=== PATIENT | female | born 1975 | race Caucasian/White ===

== ENCOUNTER 2017-06-26 08:12 | Emergency (ER) | payer BC ==
[~2017-06-26] VITALS: Ht 165.1 cm; Wt 122.5 kg
[~2017-06-26 08:12] MED LIST: AMIODARONE HCL200 MG PO; ASPIRIN EC81 MG PO; Apixaban PO; Aspirin PO; CELEXA40 MG; EXCEDRIN MIGRA1 EAC3 PO; FAMOTIDINE20 MG PO; LANOXIN250 MCG PO; LOPRESSOR25 MG PO; METOPROLOL TART25 MG PO; MOBIC15 MG; PEPCID20 MG PO; PRAVASTATIN SOD20 MG PO
[2017-06-26 09:21] LABS: BASOPHILS % 0.6 % (0.0-1.0); EOSINOPHILS % 0.4 % (0.0-6.0); HEMOGLOBIN 11.5 g/dL (12.0-16.0); LYMPHOCYTES # (AUTO) 2.2 (1.0-3.2); LYMPHOCYTES % 32.8 % (18.0-39.1); MEAN CORPUSCULAR HEMOGLOBIN 27.4 pg (28-32); MEAN CORPUSCULAR HGB CONC 31.9 g/dL (31-35); MEAN CORPUSCULAR VOLUME 85.9 fL (81-99); MONOCYTES # (AUTO) 0.6 (0.2-0.8); MONOCYTES % 8.5 % (4.4-11.3); NEUTROPHILS # (AUTO) 3.9 (2.1-6.9); NEUTROPHILS % 57.3 % (38.7-80.0); PLATELET COUNT 271 x10e3/uL (140-360); RED BLOOD COUNT 4.19 x10e6/uL (3.6-5.1); RED CELL DISTRIBUTION WIDTH 13.6 % (11.7-14.4)
[2017-06-26 09:28] LABS: BILIRUBIN,URINE NEGATIVE (NEGATIVE); KETONES,URINE NEGATIVE (NEGATIVE); LEUKOCYTE ESTERASE ,URINE NEGATIVE (NEGATIVE); NITRITE,URINE NEGATIVE (NEGATIVE); PROTEIN,URINE DIPSTICK NEGATIVE (NEGATIVE); URINE UROBILINOGEN 0.2 mg/dL (0.2 - 1)
[2017-06-26 09:32] LABS: ALANINE AMINOTRANSFERASE 30 IU/L (0-55); ALBUMIN 3.7 g/dL (3.5-5.0); ALBUMIN/GLOBULIN RATIO 1.1 (0.8-2.0); ALKALINE PHOSPHATASE 34 IU/L (40-150); BLOOD UREA NITROGEN 6 mg/dL (7-26); BUN/CREATININE RATIO 9 (6-25); CARBON DIOXIDE 22 mmol/L (22-29); CHLORIDE 105 mmol/L (98-107); CREATINE KINASE 35 IU/L (29-168); CREATININE, SERUM 0.67 mg/dL (0.57-1.11); EST GLOMERULAR FILTRATION RATE > 60 ML/MIN (60-); GLUCOSE 101 mg/dL (74-118); SODIUM 135 mmol/L (136-145)
[2017-06-26 09:52] LABS: THYROID STIMULATING HORMONE 0.488 uIU/mL (0.350-4.940)
[2017-06-26 10:15] LABS: CLARITY,URINE SL CLOUDY (CLEAR); COLOR,URINE YELLOW (YELLOW)
[2017-06-26 10:21] LABS: AMORPHOUS SEDIMENT,URINE RARE (FEW); BACTERIA,URINE RARE /HPF; EPITHELIAL CELLS,URINE MODERATE /LPF
[2017-06-26] MEDS ORDERED: KETOROLAC TROMETHAMINE 30 MG/ML VIAL IV ONE (10:30)
[2017-06-26 12:12] VITALS: BP 152/82
== END 2017-06-26 12:20 | disposition home or self-care (01) ==
LOC: ER 08:12
DX: M54.6 Pain in thoracic spine (principal); S23.3XXA Sprain of ligaments of thoracic spine, initial encounter; M54.5 Low back pain; S39.012A Strain of muscle, fascia and tendon of lower back, initial encounter; M62.830 Muscle spasm of back; R00.2 Palpitations; I48.91 Unspecified atrial fibrillation
CPT/HCPCS: 36415; 80053; 81001; 82550; 82553; 84443; 84484; 85025; 87086; 93005; 96374; 99284; J1885

== ENCOUNTER 2018-08-03 18:31 | Emergency (ER) | payer SELFPAY ==
[~2018-08-03] VITALS: Ht 165.1 cm; Wt 122.5 kg
--- OUTSIDE RECORDS SUMMARY | 2018-08-03 18:34 | XMS REPORT | Continuity of Care Document ---
Author Author [facility] Interface Address Unknown Phone Unavailable Problems Problem Status Onset Date Classification Date Reported Comments Source Acute upper respiratory infection 01/03/2017 Diagnosis 01/03/2017 [facility] Nausea, vomiting and diarrhea 01/03/2017 Diagnosis 01/03/2017 [facility] Atrial fibrillation 01/03/2017 Diagnosis 01/03/2017 [facility] Serous otitis media of right ear 09/30/2016 Diagnosis 09/30/2016 [facility] Influenza-like symptoms 09/30/2016 Diagnosis 09/30/2016 [facility] Frontal sinusitis 07/06/2016 Diagnosis 07/06/2016 [facility] Atrial fibrillation with rapid ventricular response Active 06/19/2015 Problem 06/26/2017 [facility] CVA Active Problem 06/26/2017 [facility] TIA Active Problem 06/26/2017 [facility] UTI Active Problem 06/26/2017 [facility] Vision changes Active Problem 06/26/2017 [facility] Medications Medication Details Route Status Patient Instructions Ordering Provider Order Date Source Aspirin (Aspirin Ec) 81 Mg Tablet.dr Daily Active Red 09/09/2016 [facility] Famotidine 20 Mg Tab Twice Daily Before Meals Active Red 09/09/2016 [facility] Pravastatin Sodium 20 Mg Tablet Bedtime Active [facility] 09/09/2016 [facility] Aspirin/Acetaminophen/Caffeine (Excedrin Migraine Caplet) 1 Each Tablet, 2 Tab Oral Every 6 Hours as needed for Pain Active 09/08/2016 [facility] Metoprolol Tartrate 25 Mg Tablet, 25 Mg Oral Twice A Day Active 09/08/2016 [facility] Amiodarone Hcl 200 Mg Tablet, 400 Mg Oral Three Times A Day Active Red 04/11/2016 [facility] Digoxin (Lanoxin) 250 Mcg Tablet, 0.25 Mg Oral Daily@19 Active [facility] 04/11/2016 [facility] Famotidine 20 Mg Tab, 20 Mg Oral Every 12 Hours Active [facility] 04/11/2016 [facility] Citalopram Hydrobromide (Celexa) 40 Mg Tablet, Active 04/06/2016 [facility] Meloxicam (Mobic) 15 Mg Tablet, Active 04/06/2016 [facility] Apixaban 2.5 Mg Tablet Twice A Day Active [facility] 06/22/2015 [facility] Metoprolol Tartrate (Lopressor) 25 Mg Tab Twice A Day Active [facility] 06/22/2015 [facility] Aspirin 325 Mg Tab, 81 Mg Oral Daily Active [facility] 06/22/2015 [facility] Famotidine (Pepcid) 20 Mg Tablet, 20 Mg Oral Twice Daily Before Meals Active [facility] 06/22/2015 [facility] benzonatate 200 MG Oral Capsule benzonatate 200 mg capsule Take 1 capsule 3 times a day by oral route. Active [facility] apixaban 5 MG Oral Tablet [Eliquis] Eliquis 5 mg tablet Active [facility] Metoprolol Tartrate 25 MG Oral Tablet metoprolol tartrate 25 mg tablet Active [facility] Ondansetron 8 MG Disintegrating Oral Tablet ondansetron [address] 1 tablet every 8 hours by translingual route as needed for 3 days. Active [facility] Prednisone 20 MG Oral Tablet prednisone 20 mg tablet Take 1 tablet every 12 hours by oral route as directed for 6 days. Active [facility] Amoxicillin 875 MG / Clavulanate 125 MG Oral Tablet [Augmentin] Augmentin 875 mg-125 mg tablet Take 1 tablet every 12 hours by oral route for 7 days. Active [facility] Brompheniramine Maleate 0.4 MG/ML / Dextromethorphan Hydrobromide 2 MG/ML / Pseudoephedrine Hydrochloride 6 MG/ML Oral Solution [Bromfed DM] Bromfed DM 2 mg-30 mg-10 mg/5 mL syrup Take 10 mL every 4 hours by oral route as needed. Active [facility] Eliquis Eliquis Active [facility] Fluticasone propionate 0.05 MG/ACTUAT Metered Dose Nasal [place] fluticasone 50 mcg/actuation nasal spray,suspension [place] 1 spray twice a day by intranasal route as needed. Active [facility] Medrol ([place]ron) 4 mg tablets in a dose pack Medrol ([place]ron) 4 mg tablets in a dose pack As Instructed Active [facility] Toprol metoprolol succinate Active [facility] Azithromycin 250 MG Oral Tablet Zithromax Z-[place]ron 250 mg tablet TAKE 2 TABLETS (500 MG) BY ORAL ROUTE ONCE DAILY FOR 1 DAY THEN 1 TABLET (250 MG) BY ORAL ROUTE ONCE DAILY FOR 4 DAYS Active [facility] Allergies, Adverse Reactions, Alerts Substance Category Reaction Severity Reaction type Status Date Reported Comments Source Diltiazem MIGRAINE HEADACHE Mild Propensity to adverse reactions Active 06/26/2017 [facility] Immunizations Immunization Date Given Site Status Last Updated Comments Source Results Order Name Results Value Reference Range Date Interpretation Comments Source Amorphous sediment detection in urine sediment by light microscopy Amorphous sediment detection in urine sediment by light microscopy RARE FEW 06/26/2017 [facility] Automated blood basophil count (count/volume) Automated blood basophil count (count/volume) 0.0 0.0 - 0.1 06/26/2017 [facility] Automated blood basophil count as percentage of total leukocytes Automated blood basophil count as percentage of total leukocytes 0.6 0.0 - 1.0 06/26/2017 [facility] Automated blood eosinophil count Automated blood eosinophil count 0.0 0.0 - 0.4 06/26/2017 [facility] Automated blood eosinophil count as percentage of total leukocytes Automated blood eosinophil count as percentage of total leukocytes 0.4 0.0 - 6.0 06/26/2017 [facility] Automated blood hematocrit (volume fraction) Automated blood hematocrit (volume fraction) 36.0 34.2 - 44.1 06/26/2017 [facility] Automated blood lymphocyte count as percentage ot total leukocytes Automated blood lymphocyte count as percentage ot total leukocytes 32.8 18.0 - 39.1 06/26/2017 [facility] Automated blood monocyte count as percentage of total leukocytes Automated blood monocyte count as percentage of total leukocytes 8.5 4.4 - 11.3 06/26/2017 [facility] Automated blood neutrophil count Automated blood neutrophil count 3.9 2.1 - 6.9 06/26/2017 [facility] Automated blood platelet count (count/volume) Automated blood platelet count (count/volume) 271 140 - 360 06/26/2017 [facility] Automated blood segmented neutrophil count as percentage of total leukocytes Automated blood segmented neutrophil count as percentage of total leukocytes 57.3 38.7 - 80.0 06/26/2017 [facility] Automated erythrocyte mean corpuscular hemoglobin (mass per erythrocyte) Automated erythrocyte mean corpuscular hemoglobin (mass per erythrocyte) 27.4 28 - 32 06/26/2017 [facility] Automated erythrocyte mean corpuscular hemoglobin concentration measurement (mass/volume) Automated erythrocyte mean corpuscular hemoglobin concentration measurement (mass/volume) 31.9 31 - 35 06/26/2017 [facility] Automated erythrocyte mean corpuscular volume Automated erythrocyte mean corpuscular volume 85.9 81 - 99 06/26/2017 [facility] Automated urine sediment leukocyte count by microscopy (number/high power field) Automated urine sediment leukocyte count by microscopy (number/high power field) NONE 0 - 5 06/26/2017 [facility] Bacteria detection in urine sediment by light microscopy Bacteria detection in urine sediment by light microscopy RARE NONE 06/26/2017 [facility] Blood erythrocytes automated count (number/volume) Blood erythrocytes automated count (number/volume) 4.19 3.6 - 5.1 06/26/2017 [facility] Blood hemoglobin measurement (moles/volume) Blood hemoglobin measurement (moles/volume) 11.5 12.0 - 16.0 06/26/2017 [facility] Blood leukocytes automated count (number/volume) Blood leukocytes automated count (number/volume) 6.83 4.8 - 10.8 06/26/2017 [facility] Blood lymphocytes count (number/volume) Blood lymphocytes count (number/volume) 2.2 1.0 - 3.2 06/26/2017 [facility] Blood monocytes automated count (number/volume) Blood monocytes automated count (number/volume) 0.6 0.2 - 0.8 06/26/2017 [facility] Epithelial cells detection in urine sediment by light microscopy Epithelial cells detection in urine sediment by light microscopy MODERATE NONE 06/26/2017 [facility] Erythrocytes detection in urine sediment by light microscopy Erythrocytes detection in urine sediment by light microscopy NONE 0 - 5 06/26/2017 [facility] Estimated glomerular filtration rate (GFR) determination Estimated glomerular filtration rate (GFR) determination null 60 06/26/2017 [facility] Glucose measurement Glucose measurement 101 74 - 118 06/26/2017 [facility] Plasma globulin measurement (mass/volume) Plasma globulin measurement (mass/volume) 3.5 2.3 - 3.5 06/26/2017 [facility] Serum or plasma alanine aminotransferase measurement (enzymatic activity/volume) Serum or plasma alanine aminotransferase measurement (enzymatic activity/volume) 30 0 - 55 06/26/2017 [facility] Serum or plasma albumin measurement (mass/volume) Serum or plasma albumin measurement (mass/volume) 3.7 3.5 - 5.0 06/26/2017 [facility] Serum or plasma albumin/globulin mass ratio Serum or plasma albumin/globulin mass ratio 1.1 0.8 - 2.0 06/26/2017 [facility] Serum or plasma alkaline phosphatase measurement (enzymatic activity/volume) Serum or plasma alkaline phosphatase measurement (enzymatic activity/volume) 34 40 - 150 06/26/2017 [facility] Serum or plasma anion gap Serum or plasma anion gap 12.0 8 - 16 06/26/2017 [facility] Serum or plasma calcium measurement (mass/volume) Serum or plasma calcium measurement (mass/volume) 9.0 8.4 - 10.2 06/26/2017 [facility] Serum or plasma carbon dioxide, total measurement (moles/volume) Serum or plasma carbon dioxide, total measurement (moles/volume) 22 22 - 29 06/26/2017 [facility] Serum or plasma chloride measurement (moles/volume) Serum or plasma chloride measurement (moles/volume) 105 98 - 107 06/26/2017 [facility] Serum or plasma creatine kinase MB measurement (mass/volume) Serum or plasma creatine kinase MB measurement (mass/volume) 0.30 0.00 - 5.00 06/26/2017 [facility] Serum or plasma creatine kinase measurement (enzymatic activity/volume) Serum or plasma creatine kinase measurement (enzymatic activity/volume) 35 29 - 168 06/26/2017 [facility] Serum or plasma creatinine measurement (mass/volume) Serum or plasma creatinine measurement (mass/volume) 0.67 0.57 - 1.11 06/26/2017 [facility] Serum or plasma potassium measurement (moles/volume) Serum or plasma potassium measurement (moles/volume) 4.0 3.5 - 5.1 06/26/2017 [facility] Serum or plasma protein measurement (mass/volume) Serum or plasma protein measurement (mass/volume) 7.2 6.5 - 8.1 06/26/2017 [facility] Serum or plasma sodium measurement (moles/volume) Serum or plasma sodium measurement (moles/volume) 135 136 - 145 06/26/2017 [facility] Serum or plasma thyrotropin measurement by detection limit <=0.005 miu/l (units/volume) Serum or plasma thyrotropin measurement by detection limit <=0.005 miu/l (units/volume) 0.488 0.350 - 4.940 06/26/2017 [facility] Serum or plasma total bilirubin measurement (mass/volume) Serum or plasma total bilirubin measurement (mass/volume) 0.4 0.2 - 1.2 06/26/2017 [facility] Serum or plasma troponin i.cardiac measurement by detection limit <=0.01 NG/ml (mass/volume) Serum or plasma troponin i.cardiac measurement by detection limit <=0.01 NG/ml (mass/volume) null 0 - 0.300 06/26/2017 [facility] Serum or plasma urea nitrogen measurement (mass/volume) Serum or plasma urea nitrogen measurement (mass/volume) 6 7 - 26 06/26/2017 [facility] Serum or plasma urea nitrogen/creatinine mass ratio Serum or plasma urea nitrogen/creatinine mass ratio 9 6 - 25 06/26/2017 [facility] Specific gravity of Urine by Test strip Specific gravity of Urine by Test strip 1.015 1.010 - 1.025 06/26/2017 [facility] Urine clarity Urine clarity SL CLOUDY CLEAR 06/26/2017 [facility] Urine color determination Urine color determination YELLOW YELLOW 06/26/2017 [facility] Urine erythrocytes detection Urine erythrocytes detection TRACE NEGATIVE 06/26/2017 [facility] Urine glucose detection Urine glucose detection NEGATIVE NEGATIVE 06/26/2017 [facility] Urine ketones detection by automated test strip Urine ketones detection by automated test strip NEGATIVE NEGATIVE 06/26/2017 [facility] Urine leukocyte esterase detection by dipstick Urine leukocyte esterase detection by dipstick NEGATIVE NEGATIVE 06/26/2017 [facility] Urine nitrite detection Urine nitrite detection NEGATIVE NEGATIVE 06/26/2017 [facility] Urine pH measurement by automated test strip Urine pH measurement by automated test strip 7 5 - 7 06/26/2017 [facility] Urine protein measurement by test strip (mass/volume) Urine protein measurement by test strip (mass/volume) NEGATIVE NEGATIVE 06/26/2017 [facility] Urine total bilirubin measurement (mass/volume) Urine total bilirubin measurement (mass/volume) NEGATIVE NEGATIVE 06/26/2017 [facility] Urine urobilinogen measurement by test strip (mass/volume) Urine urobilinogen measurement by test strip (mass/volume) 0.2 0.2 - 1 06/26/2017 [facility] Red Cell Distribution Width 13.6 11.7 - 14.4 06/26/2017 [facility] IM GRANULOCYTES % 0.4 0.0 - 1.0 06/26/2017 [facility] Absolute Immature Granulocyte (auto 0.03 0 - 0.1 06/26/2017 [facility] Aspartate Amino Transf (AST/SGOT) 22 5 - 34 06/26/2017 [facility] Influenza A negative 01/03/2017 [facility] Influenza B negative 01/03/2017 [facility] Influenza A negative 09/30/2016 [facility] Influenza B negative 09/30/2016 [facility] RESULT negative 09/30/2016 [facility] SWAB LOCATION Left and Right tonsillar pillars 09/30/2016 [facility] Serum or plasma cholesterol in HDL measurement (mass/volume) Serum or plasma cholesterol in HDL measurement (mass/volume) 50 40 - 60 09/09/2016 [facility] Serum or plasma cholesterol in LDL measurement by calculation (mass/volume) Serum or plasma cholesterol in LDL measurement by calculation (mass/volume) 129 60 - 130 09/09/2016 [facility] Serum or plasma cholesterol measurement (mass/volume) Serum or plasma cholesterol measurement (mass/volume) 199 0 - 199 09/09/2016 [facility] Serum or plasma magnesium measurement (mass/volume) Serum or plasma magnesium measurement (mass/volume) 2.4 1.3 - 2.1 09/09/2016 [facility] Serum or plasma total cholesterol/cholesterol in HDL mass ratio Serum or plasma total cholesterol/cholesterol in HDL mass ratio 4.0 3.0 - 3.6 09/09/2016 [facility] Serum or plasma triglyceride measurement (mass/volume) Serum or plasma triglyceride measurement (mass/volume) 98 0 - 149 09/09/2016 [facility] Hemoglobin A1c Percent 5.0 4.0 - 7.0 09/09/2016 [facility] Serum or plasma digoxin measurement (mass/volume) Serum or plasma digoxin measurement (mass/volume) null 0.8 - 2.0 09/08/2016 [facility] Barbiturates screen, urine Barbiturates screen, urine NEGATIVE NEGATIVE 09/08/2016 [facility] Urine amphetamines detection by screen method > 1000 ng/mL Urine amphetamines detection by screen method > 1000 ng/mL NEGATIVE NEGATIVE 09/08/2016 [facility] Urine benzodiazepines detection by screening method Urine benzodiazepines detection by screening method NEGATIVE NEGATIVE 09/08/2016 [facility] Urine cannabinoids detection by screening method Urine cannabinoids detection by screening method NEGATIVE NEGATIVE 09/08/2016 [facility] Urine opiates screening test Urine opiates screening test NEGATIVE NEGATIVE 09/08/2016 [facility] Urine Methamphetamines Screen NEGATIVE NEGATIVE 09/08/2016 [facility] Urine Cocaine Screen NEGATIVE NEGATIVE 09/08/2016 [facility] Vital Signs Vital Sign Value Date Comments Source Diastolic (mm Hg) 80 01/03/2017 [facility] Height 65 01/03/2017 [facility] Systolic (mm Hg) 124 01/03/2017 [facility] Weight 295 01/03/2017 [facility] Diastolic (mm Hg) 82 09/30/2016 [facility] Height 65 09/30/2016 [facility] Systolic (mm Hg) 120 09/30/2016 [facility] Weight 295 09/30/2016 [facility] Diastolic (mm Hg) 70 07/06/2016 [facility] Height 65 07/06/2016 [facility] Systolic (mm Hg) 128 07/06/2016 [facility] Weight 286 07/06/2016 [facility] Encounters Location Location Details Encounter Type Encounter Number Reason For Visit Attending Provider ADM Date DC Date Status Source [place] - [facility] - [id number] Valencia, EYE PHYSICIAN: [address] [place] [address], Ph. [phone] [id number] Kyung Valencia 07/06/2016 [facility] Discharged Inpatient (obs) [id number] MOLLY AVALOS MD 09/08/2016 09/09/2016 [facility] [place] - [facility] - [id number] Haji NP-C: [address] [place] [address], Ph. [phone] [id number] Pratibha Haji 09/30/2016 [facility] [place] [facility] - [id number] Camille Kohli, [facility]: [address] [facility], [place] [address], Ph. [id number] Camille Kohli 01/03/2017 [facility] Room [id number] BAUDILIO FAM MD 06/26/2017 06/26/2017 [facility] Procedures Procedure Code Date Perfomer Comments Source Computed tomography of brain without radiopaque contrast [id number] 09/08/2016 [facility] X-ray of chest, two views [id number] 09/08/2016 [facility] Tubal Ligation 05/15/1999 [facility]
--- OUTSIDE RECORDS SUMMARY | 2018-08-03 18:34 | XMS REPORT | Encounter Summary ---
Author Organization Unknown Address [address] [place] [address] Phone [phone] Reason for Visit Medical Complaint Instructions 1. Acute upper respiratory infection upper respiratory infection (cold): care instructions benzonatate 200 mg capsule prednisone 20 mg tablet rapid flu (A+B) 2. Nausea, vomiting and diarrhea ondansetron 8 mg disintegrating tablet 3. Atrial fibrillation atrial fibrillation: care instructions Discussion Note Pt is in NAD; Verbalizes understanding of all instructions with no questions at this time. Plan of Care Patient Instructions Stay hydrated, eat a liquid diet for the first four hours. Stay away from fried and spicy foods until symptoms resolve. If you do experience improvement in your symptoms within the next four hours, advance yourself to a carbohydrate-rich diet such as white rice, white bread, and crackers. Within the next four hours thereafter, you can advance to lean meats such as chicken, fish, and turkey. Four hours thereafter if symptoms do improve, then advance to a regular diet. Take over the counter imodium for diarrhea as needed. Take ondasentron for nausea and vomiting as directed. Start benzonatate for cough. 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 Take medications as prescribed and follow up with a PCP within 2-3 if symptoms worsen as discussed. In case of emergency call 911 or go to nearest ER. Reminders Provider Appointments None recorded. Lab Rapid Flu (A+B) 01/03/2017 [facility] Referral None recorded. Procedures None recorded. Surgeries None recorded. Imaging None recorded. Medications Name Start Date benzonatate 200 mg capsule Take 1 capsule 3 times a day by oral route. Eliquis 5 mg tablet metoprolol tartrate 25 mg tablet ondansetron [address] 1 tablet every 8 hours by translingual route as needed for 3 days. prednisone 20 mg tablet Take 1 tablet every 12 hours by oral route as directed for 6 days. Medications Administered None recorded. Vitals Height Weight BMI Blood Pressure 5 ft 5 in 295 lbs 49.1 kg/m2 124/80 mm[Hg] Lab Results Date Name Specimen Result Interpretation Description Value Range Status Address Rapid Flu (A+B) Influenza a negative [facility]: [facility] Influenza B negative [facility]: [facility] Allergies Code Code System Name Reaction Severity Status Onset NKDA Problems None recorded. Procedures Date Name Performed by 05/15/1999 Tubal Ligation Information not available Vaccine List None recorded. Social History None recorded. 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 History of Present Illness Ijufux-Mrbqrpbd-Olvkonsw / Abdominal Pain Reported By: Patient HPI: Quality: watery, intermittent. Severity: mild. Duration: symptoms last for how long?. Onset/Timing: no nocturnal symptoms, worse with meals, 1-3 times a day. Context: no one else with similar symptoms, no recent camping, no recent picnic, no possible food sources, no recent travel. Aggravating factors: eating. Associated Symptoms: no abdominal pain, no excess gas, no fever/chills, no rash, no joint pain, no weight loss, no nausea, no heartburn, no blood in stool, no mucus in stool, no black or tarry stools, no weakness, no nutrient deficiency, no headache, no feeling of fullness/mass in throat, no muscle aches, no bitter taste in the mouth, no difficulty swallowing (dysphagia), vomiting; watery diarrhea Ogjnmjl-Jnubr-Iow Reported By: Patient HPI: Duration: 3 days. Context: no ill contacts, no tick/insect bites, no recent travel, no new medications; Pt has h/o Afib, managed by cardiology. Associated Symptoms: no fever/chills, no headache, no muscle aches, no rash, no lethargy, cold symptoms, cough, nasal discharge; chest congestion, watery diarrhea and vomiting. Modifying Factors ; none Review of Systems:ROS as noted in the HPI Review of Systems Basic Reported By: Patient Physical Exam Adult Basic, Adult Female Complete Reported By: Patient Constitutional: General Appearance: healthy-appearing, well-nourished, well-developed. Level of Distress: NAD. Ambulation: ambulating normally Psychiatric: Mental Status: active and alert. Orientation: to time, to place, to person Eyes: Lids and Conjunctivae: non-injected, no discharge, no pallor Gwr-Lbyc-Bnsit-Throat: Ears: no lesions on external ear, no outer ear tenderness, EACs clear, TMs clear. Hearing: no hearing loss. Nose: no lesions on external nose, nares patent, no septal deviation, nasal passages clear, no sinus tenderness, post nasal drip. Lips, Teeth, and Gums: no mouth or lip ulcers, no bleeding gums, normal dentition. Oropharynx: moist mucous membranes, no erythema, no exudates, tonsils not enlarged Neck: Lymph Nodes: no cervical LAD Lungs: Respiratory effort: no dyspnea, no tachypnea, no use of accessory muscles, no intercostal retractions. Auscultation: breath sounds normal Cardiovascular: Heart Auscultation: RRR, no murmurs Neurologic: Gait and Station: normal gait, normal station Abdomen: Bowel Sounds: normal. Inspection and Palpation: soft, non-distended, no tenderness, no guarding, no rebound tenderness, no masses, no CVA tenderness. Liver: non-tender, no hepatomegaly. Spleen: non-tender, no splenomegaly. Hernia: none palpable
--- OUTSIDE RECORDS SUMMARY | 2018-08-03 18:34 | XMS REPORT | Encounter Summary ---
Author Organization Unknown Address [address] [place] [address] Phone [phone] Reason for Visit Medical Complaint Instructions 1. Frontal sinusitis Bromfed DM 2 mg-30 mg-10 mg/5 mL syrup fluticasone 50 mcg/actuation nasal spray,suspension Medrol ([place]) 4 mg tablets in a dose pack Zithromax Z-[place]ron 250 mg tablet sinusitis: care instructions Discussion Note Refused any rapid testing Plan of Care Patient Instructions Take medication as instructed. Follow up with your pcp or clinic for worsening sign and symptoms. Avoid environmental irritants (Pollen, cigarette, smoke). Good handwashing to prevent upper respiratory infections. Humidified air can improve mucus clearance. Irrigation of sinuses with normal saline nose drops or sprays. Increase fluid intake. Okay to use OTC decongestants for cough and analgesics for headache/ pain. Reminders Provider Appointments None recorded. Lab None recorded. Referral None recorded. Procedures None recorded. Surgeries None recorded. Imaging None recorded. Medications Name Start Date Bromfed DM 2 mg-30 mg-10 mg/5 mL syrup Take 10 mL every 4 hours by oral route as needed. Eliquis fluticasone 50 mcg/actuation nasal spray,suspension [place] 1 spray every day by intranasal route as needed. Medrol ([place]) 4 mg tablets in a dose pack As Instructed metoprolol succinate Zithromax Z-Byron 250 mg tablet TAKE 2 TABLETS (500 MG) BY ORAL ROUTE ONCE DAILY FOR 1 DAY THEN 1 TABLET (250 MG) BY ORAL ROUTE ONCE DAILY FOR 4 DAYS Medications Administered None recorded. Vitals Height Weight BMI Blood Pressure 5 ft 5 in 286 lbs 47.6 128/70 Lab Results None recorded. Allergies Name Reaction Severity Onset NKDA Problems None recorded. Procedures None recorded. Vaccine List None recorded. Social History None recorded. Past Encounters 07/06/2016 Frontal Sinusitis Kyung Valencia JIGMAN: [address] [facility], [place] [address], Ph. [phone] History of Present Illness Xaykt-Uwanbkunwk-Tudxxzx Reported By: Patient HPI: Location: head/sinuses. Quality: colored phlegm, nasal/sinus congestion, dry cough. Duration: 15days. Severity: moderate. Onset/Timing: gradual. Context: no foreign travel, sick contact. Modifying factors: OTC medication. Associated Symptoms: no shortness of breath, no wheezing, no change in number of pillows needed to sleep at night, no sweats, no significant weight gain, no significant weight loss, no morning cough, no sore throat, no vomiting, no diarrhea, no rash, no nausea, no fever, no muscle aches, yellow-green, thick sputum, headache Notes: pt reports c/o nasal congestion also cough and sinus headaches/ sinus pressure x 2 weeks Note:c/o nasal congestion also cough and sinus headaches/ sinus pressure x 2 weeks Review of Systems Basic Reported By: Patient Constitutional: Constitutional: no fever Eyes: Eyes: no eye complaints Ezxr-Jsca-Ejozb-Throat: Ears: no ear complaints. Nose: nose/sinus problems. Mouth/Throat: no sore throat, no bleeding gums, no mouth complaints, no teeth problems Cardiovascular: Cardiovascular: no chest pain, no shortness of breath, no known heart murmur Respiratory: Respiratory: no wheezing, no shortness of breath, cough Gastrointestinal: Gastrointestinal: no abdominal pain, no vomiting / diarrhea Genitourinary: Genitourinary: no urinary complaints, no discharge Musculoskeletal: Musculoskeletal: no muscle aches, no muscle weakness, no arthralgias/joint pain, no back pain Skin: Skin: no abnormal / changing mole, no jaundice, no rashes Neurologic: Neurologic: no loss of consciousness, no weakness, no numbness, no seizures, no dizziness, headache Physical Exam Adult Basic, Adult Female Complete Reported By: Patient Constitutional: General Appearance: healthy-appearing, well-nourished, well-developed. Level of Distress: NAD. Ambulation: ambulating normally Psychiatric: Mental Status: active and alert. Orientation: to time, to place, to person Eyes: Lids and Conjunctivae: non-injected, no discharge, no pallor. Pupils: PERRLA. Corneas: grossly intact, fluorescein stain--normal. EOM: EOMI. Lens: clear. Sclerae: non-icteric. Vision: acuity grossly intact Ajf-Nqyz-Lgzjn-Throat: Ears: no lesions on external ear, no outer ear tenderness, EACs clear, TMs clear. Hearing: no hearing loss. Nose: no lesions on external nose, nares patent, no septal deviation, nasal passages clear, sinus tenderness, nasal discharge, post nasal drip. Lips, Teeth, and Gums: no mouth or lip ulcers, no bleeding gums, normal dentition. Oropharynx: moist mucous membranes, no erythema, no exudates, tonsils not enlarged Neck: Neck: supple, trachea midline, no masses. Lymph Nodes: no cervical LAD, no supraclavicular LAD, no axillary LAD, no inguinal LAD. Thyroid: no enlargement, non-tender, no nodules Lungs: Respiratory effort: no dyspnea, no tachypnea, no use of accessory muscles, no intercostal retractions. Auscultation: breath sounds normal Cardiovascular: Heart Auscultation: RRR, no murmurs Musculoskeletal:: Motor Strength and Tone: normal motor strength, normal tone Neurologic: Gait and Station: normal gait, normal station Skin: Inspection and palpation: no rash, no lesions, no ulcer, no abnormal nevi, no induration, no nodules, good turgor, no jaundice Abdomen: Bowel Sounds: normal
--- OUTSIDE RECORDS SUMMARY | 2018-08-03 18:34 | XMS REPORT | Encounter Summary ---
Author Organization Unknown Address [address] [place] [address] Phone [phone] Reason for Visit Medical Complaint Instructions 1. Serous otitis media of right ear Augmentin 875 mg-125 mg tablet ear infection (otitis media): care instructions fluticasone 50 mcg/actuation nasal spray,suspension 2. Influenza-like symptoms rapid strep group A, throat rapid flu (A+B) Discussion Note Pt in NAD, understands all information provided Plan of Care Patient Instructions Pt will take abx as prescribed and keep ears dry avoiding Q-tip use. Please seek care (PCP, Urgent Care, ER) or return to [facility] if symptoms get worse or do not resolve in 1 week. Reminders Provider Appointments None recorded. Lab Rapid Strep Group a, Throat 09/30/2016 [facility] Rapid Flu (A+B) 09/30/2016 [facility] Referral None recorded. Procedures None recorded. Surgeries None recorded. Imaging None recorded. Medications Name Start Date Augmentin 875 mg-125 mg tablet Take 1 tablet every 12 hours by oral route for 7 days. Bromfed DM 2 mg-30 mg-10 mg/5 mL syrup Take 10 mL every 4 hours by oral route as needed. Eliquis Eliquis 5 mg tablet fluticasone 50 mcg/actuation nasal spray,suspension [place] 1 spray twice a day by intranasal route as needed. Medrol [...] 5 ft 5 in 295 lbs 49.1 120/82 Lab Results Date Name Specimen Result Interpretation Description Value Range Status Address Rapid Flu (A+B) Influenza a negative [facility]: [address] [place] [address] Influenza B negative [facility]: [address] [place] [address] Rapid Strep Group a, Throat Result negative [facility]: [facility] [place] [facility] Location Left and Right tonsillar pillars [facility]: [address] [place] [address] Allergies Code Code System Name Reaction Severity Onset NKDA Problems None recorded. Procedures None recorded. Vaccine List None recorded. Social History None recorded. Past Encounters 09/30/2016 Serous Otitis Media of Right Ear; Influenza-like Symptoms Pratibha Haji, SHADE CLASSIFIER-C: [address] [facility], [place] [address], Ph. [phone] History of Present Illness Enmggzd-Lqmof-Lof Reported By: Patient HPI: Quality: cannot identify. Duration: 4 days. Severity: subjective temperature. Context: no tick/insect bites, no recent travel, no new medications, ill contacts. Associated Symptoms: no fever/chills, no muscle aches, no rash, no lethargy, headache, tired (fatigue), cough, nasal passage blockage (stuffiness) Ear Complaint Reported By: Patient HPI: Location: right. Quality: ears feel full/plugged. Severity: intermittent. Onset/Timing: better. Context: no sick contacts, no recent swimming/water in ear, no exposure to second hand smoke, no head trauma, not grinding teeth, no recent air travel. Modifying factors: does not hurt to lie on, or pull on ear, hurts to chew. Associated Symptoms: no discharge from the ears, no hearing loss, no popping noise in the ears, no ringing in the ears, no fever, no chills, no earache, no dizziness, no vertigo, no muscle aches, nose/sinus problems, headache Review of Systems:ROS as noted in the HPI Review of Systems Basic Reported By: Patient Physical Exam Adult Basic, Adult Female Complete Reported By: Patient Constitutional: General Appearance: healthy-appearing, well-nourished, well-developed. Level of Distress: NAD. Ambulation: ambulating normally Psychiatric: Mental Status: active and alert. Orientation: to time, to place, to person Ywk-Khkn-Eynye-Throat: Ears: no lesions on external ear, no outer ear tenderness, EACs clear, TM erythematous, TM bulging, TM opacified, middle ear fluid. Hearing: no hearing loss. Nose: no lesions on external nose, nares patent, no septal deviation, nasal passages clear, no sinus tenderness, nasal discharge--rhinorrhea, post nasal drip. Oropharynx: erythema Lungs: Respiratory effort: no dyspnea, no tachypnea, no use of accessory muscles, no intercostal retractions. Auscultation: breath sounds normal Cardiovascular: Heart Auscultation: no murmurs; MVP
[2018-08-03] MEDS ORDERED: AMMONIA AROMATIC INHAL 0.33 ML AMP INH ONE (20:04)
--- NOTE | 2018-08-03 20:34 | Diagnostic Imaging Report ---
History: Dizziness Comparison studies: None Technique: Axial images were obtained from the skull base to the vertex. Coronal and sagittal reconstructions obtained from the axial data. Dose modulation, iterative reconstruction, and/or weight based adjustment of the mA/kV was utilized to reduce the radiation dose to as low as reasonably achievable. Intravenous contrast: None Findings: Scalp/skull: No abnormalities. No fractures, blastic or lytic lesions. Extra-axial spaces: No masses. No fluid collections. Brain sulci: Appropriate for age. Ventricles: Normal in size and configuration. No hydrocephalus. Parenchyma: No abnormal densities. No masses, hemorrhage, acute or chronic cortical vascular insults. Sellar/suprasellar region: No abnormalities Craniocervical junction: Patent foramen magnum. No Chiari one malformation. IMPRESSION: No abnormalities. Signed by: Dr. Luis E Wilson M.D. on 08/03/2018 8:30 PM
[2018-08-03 21:02] LABS: BASOPHILS % 0.6 % (0.0-1.0); EOSINOPHILS # (AUTO) 0.1 (0.0-0.4); EOSINOPHILS % 0.9 % (0.0-6.0); HEMATOCRIT 34.3 % (34.2-44.1); HEMOGLOBIN 10.4 g/dL (12.0-16.0); LYMPHOCYTES # (AUTO) 3.6 (1.0-3.2); LYMPHOCYTES % 52.8 % (18.0-39.1); MEAN CORPUSCULAR HEMOGLOBIN 24.9 pg (28-32); MEAN CORPUSCULAR HGB CONC 30.3 g/dL (31-35); MEAN CORPUSCULAR VOLUME 82.3 fL (81-99); MONOCYTES # (AUTO) 0.7 (0.2-0.8); MONOCYTES % 10.6 % (4.4-11.3); NEUTROPHILS # (AUTO) 2.4 (2.1-6.9); NEUTROPHILS % 34.7 % (38.7-80.0); PLATELET COUNT 271 x10e3/uL (140-360); RED BLOOD COUNT 4.17 x10e6/uL (3.6-5.1); RED CELL DISTRIBUTION WIDTH 15.2 % (11.7-14.4)
[2018-08-03 21:19] LABS: ALANINE AMINOTRANSFERASE 20 IU/L (0-55); ALBUMIN 3.7 g/dL (3.5-5.0); ALKALINE PHOSPHATASE 44 IU/L (40-150); ANION GAP 11.8 mmol/L (8-16); BLOOD UREA NITROGEN 5 mg/dL (7-26); BUN/CREATININE RATIO 7 (6-25); CALCIUM 9.6 mg/dL (8.4-10.2); CARBON DIOXIDE 27 mmol/L (22-29); CHLORIDE 99 mmol/L (98-107); CREATININE, SERUM 0.73 mg/dL (0.57-1.11); EST GLOMERULAR FILTRATION RATE > 60 ML/MIN (60-); GLUCOSE 96 mg/dL (74-118); POTASSIUM 4.8 mmol/L (3.5-5.1); SODIUM 133 mmol/L (136-145)
--- NOTE | 2018-08-03 23:30 | NUR ---
PT REQUEST TO LEAVE AM, IV CATH REMOVED BY Monik HERNANDEZ LVN; PT DEPARTED UNIT WITH STEADY GAIT AND NAD NOTED
--- NOTE | 2018-08-04 06:14 | NUR ---
Thania silva in EDM - 08/04/18 at 0615 by ARMAND PT REQUEST TO LEAVE AM, IV CATH REMOVED BY Monik HERNANDEZ LVN; PT DEPARTED UNIT WITH STEADY GAIT AND NAD NOTED
== END 2018-08-03 23:30 | disposition left against medical advice (07) ==
LOC: ER 18:31
DX: R42 Dizziness and giddiness (principal)
CPT/HCPCS: 36415; 70450; 80053; 83605; 85025

== ENCOUNTER 2019-08-23 14:39 | Inpatient (IN) | payer BC, OTHER ==
[~2019-08-23] VITALS: Ht 165.1 cm; Wt 126.6 kg
--- OUTSIDE RECORDS SUMMARY | 2019-08-23 14:41 | XMS REPORT ---
[facility] Address Unknown Phone Unavailable Care Team Providers [employer] Name Role Phone Scar [facility] Unavailable Unavailable Payers Payer Name Policy Type Policy Number Effective Date Expiration Date Problems This patient has no known problems. Allergies, Adverse Reactions, Alerts Allergy Name Allergy Type Status Severity Reaction(s) Onset Date Inactive Date Treating Clinician Comments No Known Allergies DA Active U 2019-04-03 00:00:00 No Known Allergies DA Active U 2011-07-21 00:00:00 Medications This patient has no known medications. Results Test Description Test Time Test Comments Text Results Atomic Results Result Comments CBC W/AUTO DIFF 2019-04-04 09:27:00 WHITE BLOOD CELL (test code=WBC) 6.8 K/mm3 4.5-12.5 RED BLOOD CELL (test code=RBC) 3.69 mill/mm3 3.7-5.2 HEMOGLOBIN (test code=HGB) 8.3 gram/dL 11.5-15.5 HEMATOCRIT (test code=HCT) 29.2 % 36.0-46.0 MEAN CELL VOLUME (test code=MCV) 79.1 fL 80-98 MEAN CELL HGB (test code=MCH) 22.5 picogram 27.0-33.0 MEAN CELL HGB CONCETRATION (test code=MCHC) 28.4 gram/dL 33.0-36.0 RED CELL DISTRIBUTION WIDTH (test code=RDW) 15.3 % 11.6-16.2 RED CELL DISTRIBUTION WIDTH SD (test code=RDW-SD) 43.8 fL 37.0-51.0 PLATELET COUNT (test code=PLT) 237 K/mm3 150-450 MEAN PLATELET VOLUME (test code=MPV) 8.8 fL 6.7-11.0 NEUTROPHIL % (test code=NT%) 44.1 % 39.0-69.0 IMMATURE GRANULOCYTE % (test code=IG%) 0.3 % 0.0-5.0 LYMPHOCYTE % (test code=LY%) 45.4 % 25.0-55.0 MONOCYTE % (test code=MO%) 8.9 % 0.0-10.0 EOSINOPHIL % (test code=EO%) 0.6 % 0.0-5.0 BASOPHIL % (test code=BA%) 0.7 % 0.0-1.0 NUCLEATED RBC % (test code=NRBC%) 0.0 % 0-0 NEUTROPHIL # (test code=NT#) 2.98 K/mm3 1.8-7.7 IMMATURE GRANULOCYTE # (test code=IG#) 0.02 x10 3/uL 0-0.03 LYMPHOCYTE # (test code=LY#) 3.07 K/mm3 1.0-5.0 MONOCYTE # (test code=MO#) 0.60 K/mm3 0-0.8 EOSINOPHIL # (test code=EO#) 0.04 K/mm3 0.0-0.5 BASOPHIL # (test code=BA#) 0.05 K/mm3 0.0-0.2 NUCLEATED RBC # (test code=NRBC#) 0.00 K/mm3 0.0-0.1 MANUAL DIFF REQUIRED (test code=MDIFF) NO, ONLY SCAN NEEDED DIFFERENTIAL [id number] 09:27:00* Test Item Value Reference Range Comments STAIN ACCEPTABILITY (test code=STN ACCEPTABLE) STAIN ACCEPTABLE POLYCHROMASIA (test code=POLC) 1+ HYPOCHROMIA (test code=HYPO) 1+ POIKILOCYTOSIS (test code=POIK) 1+ ANISOCYTOSIS (test code=ANISO) 1+ MICROCYTOSIS (test code=MICR) 1+ PLATELET ESTIMATE (test code=PLTEST) ADEQUATE PLATELET MORPHOLOGY (test code=PLTMORPH) NORMAL COMPREHENSIVE METABOLIC [id number] 07:23:00* Test Item Value Reference Range Comments SODIUM (test code=NA) 141 mmol/L 136-145 POTASSIUM (test code=K) 3.9 mmol/L 3.5-5.1 CHLORIDE (test code=CL) 108.0 mmol/L 98-107 CARBON DIOXIDE (test code=CO2) 26.0 mmol/L 21-32 ANION GAP (test code=GAP) 10.9 10-20 GLUCOSE (test code=GLU) 83 mg/dL 74-106 BLOOD UREA NITROGEN (test code=BUN) 6 mg/dL 7-18 GLOMERULAR FILTRATION RATE (test code=GFR) > 60 mL/min >=60 Estimated GFR by using Modified MDRD formula.Chronic kidney disease is defined as either kidney damageor GFR <60 mL/min/1.73 m2 for >3 months. CREATININE (test code=CREAT) 0.60 mg/dL 0.55-1.02 Note change in reference range due to change in reagent. BUN/CREATININE RATIO (test code=BUN/CREA) 9.7 10-20 TOTAL PROTEIN (test code=PROT) 6.4 gram/dL 6.4-8.2 ALBUMIN (test code=ALB) 3.2 g/dL 3.4-5.0 GLOBULIN (test code=GLOB) 3.2 gram/dL 2.7-4.2 ALBUMIN/GLOBULIN RATIO (test code=A/G) 1.0 0.75-1.50 CALCIUM (test code=CA) 8.0 mg/dL 8.5-10.1 BILIRUBIN TOTAL (test code=BILT) 0.40 mg/dL 0.0-1.0 SGOT/AST (test code=AST) 6 IUnit/L 15-37 SGPT/ALT (test code=ALT) 14 IUnit/L 12-78 ALKALINE PHOSPHATASE TOTAL (test code=ALKP) 41 IUnit/L 45-117 Note change in reference range due to change in reagent. SPECIMEN COMMENTS: FastingLIPID PROFILE (CORONARY RISK)2019-04-04 07:23:00* Test Item Value Reference Range Comments TRIGLYCERIDES (test code=TRIG) 159 mg/dL 20-150 CHOLESTEROL (test code=CHOL) 206 mg/dL 0-200 CHOLESTEROL/HDL RATIO (test code=CHOLHDL) 4.0 RATIO 0-4.9 RISK ASSOCIATED WITH CHOL/HDL RATIOS: Risk Male Female1/2 AVERAGE 3.43 3.27AVERAGE 4.97 4.442X AVERAGE 9.55 7.053X AVERAGE 23.39 11.04 REFERENCE VALUE IS RELATED TO RISK LEVELS ASRECOMMENDED BY THE [facility]. HEART, LUNG, AND BLOOD INST. HDL CHOLESTEROL (test code=HDL) 47 mg/dL 40-60 LIPOPROTEIN LDL (test code=LDL) 140 mg/dL 100-129 RN PERSONNEL, CONTACT PHYSICIAN IMMEDIATELY IF THIS IS A STROKE, AMI OR CAROTID STENOSIS PATIENT WHEN THE LDL >100 (1ST OCCURENCE, THIS ADMISSION) Reference Interval: mg/dL mmol/L Optimal <100 <2.6Near/above optimal 100-129 2.6- 3.3Borderline High 130-159 3.4-4.1High 160-189 4.1-4.9Very High >=190 >=4.9=========This LDL result is a direct measurement.========= SPECIMEN COMMENTS: [id number] 07:23:00* Test Item Value Reference Range Comments MAGNESIUM (test code=MAG) 2.4 mg/dL 1.8-2.4 SPECIMEN COMMENTS: FastingCOMPREHENSIVE METABOLIC [id number] 07:13:00* Test Item Value Reference Range Comments SODIUM (test code=NA) 141 mmol/L 136-145 POTASSIUM (test code=K) 3.9 mmol/L 3.5-5.1 CHLORIDE (test code=CL) 108.0 mmol/L 98-107 CARBON DIOXIDE (test code=CO2) mmol/L 21-32 ANION GAP (test code=GAP) 10-20 GLUCOSE (test code=GLU) mg/dL 74-106 BLOOD UREA NITROGEN (test code=BUN) mg/dL 7-18 GLOMERULAR FILTRATION RATE (test code=GFR) mL/min >=60 CREATININE (test code=CREAT) mg/dL 0.55-1.02 BUN/CREATININE RATIO (test code=BUN/CREA) 10-20 TOTAL PROTEIN (test code=PROT) gram/dL 6.4-8.2 ALBUMIN (test code=ALB) g/dL 3.4-5.0 GLOBULIN (test code=GLOB) gram/dL 2.7-4.2 ALBUMIN/GLOBULIN RATIO (test code=A/G) 0.75-1.50 CALCIUM (test code=CA) mg/dL 8.5-10.1 BILIRUBIN TOTAL (test code=BILT) mg/dL 0.0-1.0 SGOT/AST (test code=AST) IUnit/L 15-37 SGPT/ALT (test code=ALT) IUnit/L 12-78 ALKALINE PHOSPHATASE TOTAL (test code=ALKP) IUnit/L 45-117 SPECIMEN COMMENTS: FastingLIPID PROFILE (CORONARY RISK)2019-04-04 07:13:00* Test Item Value Reference Range Comments TRIGLYCERIDES (test code=TRIG) mg/dL 20-150 CHOLESTEROL (test code=CHOL) mg/dL 0-200 CHOLESTEROL/HDL RATIO (test code=CHOLHDL) RATIO 0-4.9 HDL CHOLESTEROL (test code=HDL) mg/dL 40-60 LIPOPROTEIN LDL (test code=LDL) mg/dL 100-129 SPECIMEN COMMENTS: [id number] 07:13:00* Test Item Value Reference Range Comments MAGNESIUM (test code=MAG) mg/dL 1.8-2.4 SPECIMEN COMMENTS: FastingCBC W/AUTO [id number] 07:09:00* Test Item Value Reference Range Comments WHITE BLOOD CELL (test code=WBC) 6.8 K/mm3 4.5-12.5 RED BLOOD CELL (test code=RBC) 3.69 mill/mm3 3.7-5.2 HEMOGLOBIN (test code=HGB) 8.3 gram/dL 11.5-15.5 HEMATOCRIT (test code=HCT) 29.2 % 36.0-46.0 MEAN CELL VOLUME (test code=MCV) 79.1 fL 80-98 MEAN CELL HGB (test code=MCH) 22.5 picogram 27.0-33.0 MEAN CELL HGB CONCETRATION (test code=MCHC) 28.4 gram/dL 33.0-36.0 RED CELL DISTRIBUTION WIDTH (test code=RDW) 15.3 % 11.6-16.2 RED CELL DISTRIBUTION WIDTH SD (test code=RDW-SD) 43.8 fL 37.0-51.0 PLATELET COUNT (test code=PLT) 237 K/mm3 150-450 MEAN PLATELET VOLUME (test code=MPV) 8.8 fL 6.7-11.0 NEUTROPHIL % (test code=NT%) 44.1 % 39.0-69.0 IMMATURE GRANULOCYTE % (test code=IG%) 0.3 % 0.0-5.0 LYMPHOCYTE % (test code=LY%) 45.4 % 25.0-55.0 MONOCYTE % (test code=MO%) 8.9 % 0.0-10.0 EOSINOPHIL % (test code=EO%) 0.6 % 0.0-5.0 BASOPHIL % (test code=BA%) 0.7 % 0.0-1.0 NUCLEATED RBC % (test code=NRBC%) 0.0 % 0-0 NEUTROPHIL # (test code=NT#) 2.98 K/mm3 1.8-7.7 IMMATURE GRANULOCYTE # (test code=IG#) 0.02 x10 3/uL 0-0.03 LYMPHOCYTE # (test code=LY#) 3.07 K/mm3 1.0-5.0 MONOCYTE # (test code=MO#) 0.60 K/mm3 0-0.8 EOSINOPHIL # (test code=EO#) 0.04 K/mm3 0.0-0.5 BASOPHIL # (test code=BA#) 0.05 K/mm3 0.0-0.2 NUCLEATED RBC # (test code=NRBC#) 0.00 K/mm3 0.0-0.1 MANUAL DIFF REQUIRED (test code=MDIFF) NO, ONLY SCAN NEEDED DIFFERENTIAL [id number] 07:09:00* Test Item Value Reference Range Comments STAIN ACCEPTABILITY (test code=STN ACCEPTABLE) CABOT RINGS (test code=CAB) MORPHOLOGY COMMENT (test code=MOC) PLATELET ESTIMATE (test code=PLTEST) PLATELET MORPHOLOGY (test code=PLTMORPH) CBC W/AUTO [id number] 07:09:00* Test Item Value Reference Range Comments WHITE BLOOD CELL (test code=WBC) 6.8 K/mm3 4.5-12.5 RED BLOOD CELL (test code=RBC) 3.69 mill/mm3 3.7-5.2 HEMOGLOBIN (test code=HGB) 8.3 gram/dL 11.5-15.5 HEMATOCRIT (test code=HCT) 29.2 % 36.0-46.0 MEAN CELL VOLUME (test code=MCV) 79.1 fL 80-98 MEAN CELL HGB (test code=MCH) 22.5 picogram 27.0-33.0 MEAN CELL HGB CONCETRATION (test code=MCHC) 28.4 gram/dL 33.0-36.0 RED CELL DISTRIBUTION WIDTH (test code=RDW) 15.3 % 11.6-16.2 RED CELL DISTRIBUTION WIDTH SD (test code=RDW-SD) 43.8 fL 37.0-51.0 PLATELET COUNT (test code=PLT) 237 K/mm3 150-450 MEAN PLATELET VOLUME (test code=MPV) 8.8 fL 6.7-11.0 NEUTROPHIL % (test code=NT%) 44.1 % 39.0-69.0 IMMATURE GRANULOCYTE % (test code=IG%) 0.3 % 0.0-5.0 LYMPHOCYTE % (test code=LY%) 45.4 % 25.0-55.0 MONOCYTE % (test code=MO%) 8.9 % 0.0-10.0 EOSINOPHIL % (test code=EO%) 0.6 % 0.0-5.0 BASOPHIL % (test code=BA%) 0.7 % 0.0-1.0 NUCLEATED RBC % (test code=NRBC%) 0.0 % 0-0 NEUTROPHIL # (test code=NT#) 2.98 K/mm3 1.8-7.7 IMMATURE GRANULOCYTE # (test code=IG#) 0.02 x10 3/uL 0-0.03 LYMPHOCYTE # (test code=LY#) 3.07 K/mm3 1.0-5.0 MONOCYTE # (test code=MO#) 0.60 K/mm3 0-0.8 EOSINOPHIL # (test code=EO#) 0.04 K/mm3 0.0-0.5 BASOPHIL # (test code=BA#) 0.05 K/mm3 0.0-0.2 NUCLEATED RBC # (test code=NRBC#) 0.00 K/mm3 0.0-0.1 MANUAL DIFF REQUIRED (test code=MDIFF) NO, ONLY SCAN NEEDED DIFFERENTIAL [id number] 07:09:00* Test Item Value Reference Range Comments STAIN ACCEPTABILITY (test code=STN ACCEPTABLE) MORPHOLOGY COMMENT (test code=MOC) PLATELET ESTIMATE (test code=PLTEST) PLATELET MORPHOLOGY (test code=PLTMORPH) CBC W/AUTO [id number] 07:09:00* Test Item Value Reference Range Comments WHITE BLOOD CELL (test code=WBC) 6.8 K/mm3 4.5-12.5 RED BLOOD CELL (test code=RBC) 3.69 mill/mm3 3.7-5.2 HEMOGLOBIN (test code=HGB) 8.3 gram/dL 11.5-15.5 HEMATOCRIT (test code=HCT) 29.2 % 36.0-46.0 MEAN CELL VOLUME (test code=MCV) 79.1 fL 80-98 MEAN CELL HGB (test code=MCH) 22.5 picogram 27.0-33.0 MEAN CELL HGB CONCETRATION (test code=MCHC) 28.4 gram/dL 33.0-36.0 RED CELL DISTRIBUTION WIDTH (test code=RDW) 15.3 % 11.6-16.2 RED CELL DISTRIBUTION WIDTH SD (test code=RDW-SD) 43.8 fL 37.0-51.0 PLATELET COUNT (test code=PLT) 237 K/mm3 150-450 MEAN PLATELET VOLUME (test code=MPV) 8.8 fL 6.7-11.0 NEUTROPHIL % (test code=NT%) 44.1 % 39.0-69.0 IMMATURE GRANULOCYTE % (test code=IG%) 0.3 % 0.0-5.0 LYMPHOCYTE % (test code=LY%) 45.4 % 25.0-55.0 MONOCYTE % (test code=MO%) 8.9 % 0.0-10.0 EOSINOPHIL % (test code=EO%) 0.6 % 0.0-5.0 BASOPHIL % (test code=BA%) 0.7 % 0.0-1.0 NUCLEATED RBC % (test code=NRBC%) 0.0 % 0-0 NEUTROPHIL # (test code=NT#) 2.98 K/mm3 1.8-7.7 IMMATURE GRANULOCYTE # (test code=IG#) 0.02 x10 3/uL 0-0.03 LYMPHOCYTE # (test code=LY#) 3.07 K/mm3 1.0-5.0 MONOCYTE # (test code=MO#) 0.60 K/mm3 0-0.8 EOSINOPHIL # (test code=EO#) 0.04 K/mm3 0.0-0.5 BASOPHIL # (test code=BA#) 0.05 K/mm3 0.0-0.2 NUCLEATED RBC # (test code=NRBC#) 0.00 K/mm3 0.0-0.1 MANUAL DIFF REQUIRED (test code=MDIFF) NO, ONLY SCAN NEEDED DIFFERENTIAL [id number] 07:09:00* Test Item Value Reference Range Comments STAIN ACCEPTABILITY (test code=STN ACCEPTABLE) MORPHOLOGY COMMENT (test code=MOC) PLATELET ESTIMATE (test code=PLTEST) PLATELET MORPHOLOGY (test code=PLTMORPH) CBC W/AUTO [id number] 07:09:00* Test Item Value Reference Range Comments WHITE BLOOD CELL (test code=WBC) 6.8 K/mm3 4.5-12.5 RED BLOOD CELL (test code=RBC) 3.69 mill/mm3 3.7-5.2 HEMOGLOBIN (test code=HGB) 8.3 gram/dL 11.5-15.5 HEMATOCRIT (test code=HCT) 29.2 % 36.0-46.0 MEAN CELL VOLUME (test code=MCV) 79.1 fL 80-98 MEAN CELL HGB (test code=MCH) 22.5 picogram 27.0-33.0 MEAN CELL HGB CONCETRATION (test code=MCHC) 28.4 gram/dL 33.0-36.0 RED CELL DISTRIBUTION WIDTH (test code=RDW) 15.3 % 11.6-16.2 RED CELL DISTRIBUTION WIDTH SD (test code=RDW-SD) 43.8 fL 37.0-51.0 PLATELET COUNT (test code=PLT) 237 K/mm3 150-450 MEAN PLATELET VOLUME (test code=MPV) 8.8 fL 6.7-11.0 NEUTROPHIL % (test code=NT%) 44.1 % 39.0-69.0 IMMATURE GRANULOCYTE % (test code=IG%) 0.3 % 0.0-5.0 LYMPHOCYTE % (test code=LY%) 45.4 % 25.0-55.0 MONOCYTE % (test code=MO%) 8.9 % 0.0-10.0 EOSINOPHIL % (test code=EO%) 0.6 % 0.0-5.0 BASOPHIL % (test code=BA%) 0.7 % 0.0-1.0 NUCLEATED RBC % (test code=NRBC%) 0.0 % 0-0 NEUTROPHIL # (test code=NT#) 2.98 K/mm3 1.8-7.7 IMMATURE GRANULOCYTE # (test code=IG#) 0.02 x10 3/uL 0-0.03 LYMPHOCYTE # (test code=LY#) 3.07 K/mm3 1.0-5.0 MONOCYTE # (test code=MO#) 0.60 K/mm3 0-0.8 EOSINOPHIL # (test code=EO#) 0.04 K/mm3 0.0-0.5 BASOPHIL # (test code=BA#) 0.05 K/mm3 0.0-0.2 NUCLEATED RBC # (test code=NRBC#) 0.00 K/mm3 0.0-0.1 MANUAL DIFF REQUIRED (test code=MDIFF) NO, ONLY SCAN NEEDED DIFFERENTIAL [id number] 07:09:00* Test Item Value Reference Range Comments STAIN ACCEPTABILITY (test code=STN ACCEPTABLE) CABOT RINGS (test code=CAB) MORPHOLOGY COMMENT (test code=MOC) PLATELET ESTIMATE (test code=PLTEST) PLATELET MORPHOLOGY (test code=PLTMORPH) [id number] 01:46:00* Test Item Value Reference Range Comments TROPONIN-I (test code=TROPI) <0.015 ng/mL 0-0.045 COMMENTS TO SHEARER OPERATOR: COLLECT 3 HOURS AFTER PREVIOUS [id number] 22:38:00* Test Item Value Reference Range Comments TROPONIN-I (test code=TROPI) <0.015 ng/mL 0-0.045 COMMENTS TO SHEARER OPERATOR: COLLECT 3 HOURS AFTER PREVIOUS SAMPLELIPID PROFILE (CORONARY RISK)2019-04-03 22:26:00* Test Item Value Reference Range Comments TRIGLYCERIDES (test code=TRIG) 161 mg/dL 20-150 CHOLESTEROL (test code=CHOL) 221 mg/dL 0-200 CHOLESTEROL/HDL RATIO (test code=CHOLHDL) 4.0 RATIO 0-4.9 RISK ASSOCIATED WITH CHOL/HDL RATIOS: Risk Male Female1/2 AVERAGE 3.43 3.27AVERAGE 4.97 4.442X AVERAGE 9.55 7.053X AVERAGE 23.39 11.04 REFERENCE VALUE IS RELATED TO RISK LEVELS ASRECOMMENDED BY THE [facility]. HEART, LUNG, AND BLOOD INST. HDL CHOLESTEROL (test code=HDL) 53 mg/dL 40-60 LIPOPROTEIN LDL (test code=LDL) 149 mg/dL 100-129 RN PERSONNEL, CONTACT PHYSICIAN IMMEDIATELY IF THIS IS A STROKE, AMI OR CAROTID STENOSIS PATIENT WHEN THE LDL >100 (1ST OCCURENCE, THIS ADMISSION) Reference Interval: mg/dL mmol/L Optimal <100 <2.6Near/above optimal 100-129 2.6- 3.3Borderline High 130-159 3.4-4.1High 160-189 4.1-4.9Very High >=190 >=4.9=========This LDL result is a direct measurement.========= URINALYSIS [id number] 22:25:00* Test Item Value Reference Range Comments UA COLOR (test code=COLU) YELLOW YELLOW UA APPEARANCE (test code=APPU) HAZY CLEAR UA GLUCOSE DIPSTICK (test code=DGLUU) NEGATIVE mg/dL NEGATIVE UA BILIRUBIN DIPSTICK (test code=BILU) NEGATIVE NEGATIVE UA KETONE DIPSTICK (test code=KETU) NEGATIVE mg/dL NEGATIVE UA SPECIFIC GRAVITY (test code=SGU) >=1.030 1.001-1.035 UA BLOOD DIPSTICK (test code=MALENA) NEGATIVE NEGATIVE UA PH DIPSTICK (test code=MARGIE) 5.5 5.0-8.0 UA PROTEIN DIPSTICK (test code=PROU) NEGATIVE mg/dL Neg-15 UA UROBILINIOGEN DIPSTICK (test code=URO) 0.2 mg/dL 0.0-0.2 UA NITRITE DIPSTICK (test code=ALICIA) NEGATIVE NEGATIVE UA LEUKOCYTE ESTERASE W REFLEX (test code=LEUUR) NEGATIVE NEGATIVE UA WBC (test code=WBCU) 0-5 per HPF 0-5 UA RBC (test code=RBCU) 0-2 #/HPF 0-5 UA EPITHELIAL CELLS (test code=EPIU) MOD per HPF FEW UA BACTERIA (test code=BACU) FEW #/HPF NONE UA MUCUS (test code=MUCU) FEW #/LPF FEW Urine Source? Clean CatchDRUGS OF ABUSE SCREEN [id number] 22:25:00* Test Item Value Reference Range Comments URN COCAINE (test code=COCAURN) NEGATIVE <300 ng/mL URN CANNABINOIDS (test code=CANNABURN) NEGATIVE <50 ng/mL URN AMPHETAMINE (test code=AMPHETURN) NEGATIVE <1000 ng/mL URN BARBITURATE (test code=BARBITURN) NEGATIVE <200 ng/mL URN BENZODIAZEPINE (test code=BENZOURN) NEGATIVE <200 ng/mL URN OPIATES (test code=OPIATURN) NEGATIVE <300 ng/mL URN PHENCYCLIDINE (PCP) (test code=PHENCURN) NEGATIVE <25 ng/mL URN METHADONE (test code=METHAURN) NEGATIVE <300 ng/mL Urine Source? Clean CatchURINALYSIS [id number] 22:22:00* Test Item Value Reference Range Comments UA COLOR (test code=COLU) YELLOW YELLOW UA APPEARANCE (test code=APPU) HAZY CLEAR UA GLUCOSE DIPSTICK (test code=DGLUU) NEGATIVE mg/dL NEGATIVE UA BILIRUBIN DIPSTICK (test code=BILU) NEGATIVE NEGATIVE UA KETONE DIPSTICK (test code=KETU) NEGATIVE mg/dL NEGATIVE UA SPECIFIC GRAVITY (test code=SGU) >=1.030 1.001-1.035 UA BLOOD DIPSTICK (test code=MALENA) NEGATIVE NEGATIVE UA PH DIPSTICK (test code=MARGIE) 5.5 5.0-8.0 UA PROTEIN DIPSTICK (test code=PROU) NEGATIVE mg/dL Neg-15 UA UROBILINIOGEN DIPSTICK (test code=URO) 0.2 mg/dL 0.0-0.2 UA NITRITE DIPSTICK (test code=ALICIA) NEGATIVE NEGATIVE UA LEUKOCYTE ESTERASE W REFLEX (test code=LEUUR) NEGATIVE NEGATIVE UA WBC (test code=WBCU) 0-5 per HPF 0-5 UA RBC (test code=RBCU) 0-2 #/HPF 0-5 UA EPITHELIAL CELLS (test code=EPIU) MOD per HPF FEW UA BACTERIA (test code=BACU) FEW #/HPF NONE UA MUCUS (test code=MUCU) FEW #/LPF FEW Urine Source? Clean CatchDRUGS OF ABUSE SCREEN [id number] 22:22:00* Test Item Value Reference Range Comments URN COCAINE (test code=COCAURN) <300 ng/mL URN CANNABINOIDS (test code=CANNABURN) <50 ng/mL URN AMPHETAMINE (test code=AMPHETURN) <1000 ng/mL URN BARBITURATE (test code=BARBITURN) <200 ng/mL URN BENZODIAZEPINE (test code=BENZOURN) <200 ng/mL URN OPIATES (test code=OPIATURN) <300 ng/mL URN PHENCYCLIDINE (PCP) (test code=PHENCURN) <25 ng/mL URN METHADONE (test code=METHAURN) <300 ng/mL Urine Source? Clean CatchURINALYSIS [id number] 22:17:00* Test Item Value Reference Range Comments UA COLOR (test code=COLU) YELLOW YELLOW UA APPEARANCE (test code=APPU) HAZY CLEAR UA GLUCOSE DIPSTICK (test code=DGLUU) NEGATIVE mg/dL NEGATIVE UA BILIRUBIN DIPSTICK (test code=BILU) NEGATIVE NEGATIVE UA KETONE DIPSTICK (test code=KETU) NEGATIVE mg/dL NEGATIVE UA SPECIFIC GRAVITY (test code=SGU) >=1.030 1.001-1.035 UA BLOOD DIPSTICK (test code=MALENA) NEGATIVE NEGATIVE UA PH DIPSTICK (test code=MARGIE) 5.5 5.0-8.0 UA PROTEIN DIPSTICK (test code=PROU) NEGATIVE mg/dL Neg-15 UA UROBILINIOGEN DIPSTICK (test code=URO) 0.2 mg/dL 0.0-0.2 UA NITRITE DIPSTICK (test code=ALICIA) NEGATIVE NEGATIVE UA LEUKOCYTE ESTERASE W REFLEX (test code=LEUUR) NEGATIVE NEGATIVE UA WBC (test code=WBCU) per HPF 0-5 UA RBC (test code=RBCU) per HPF 0-5 UA EPITHELIAL CELLS (test code=EPIU) per HPF Few UA BACTERIA (test code=BACU) per HPF NONE Urine Source? Clean CatchDRUGS OF ABUSE SCREEN [id number] 22:17:00* Test Item Value Reference Range Comments URN COCAINE (test code=COCAURN) <300 ng/mL URN CANNABINOIDS (test code=CANNABURN) <50 ng/mL URN AMPHETAMINE (test code=AMPHETURN) <1000 ng/mL URN BARBITURATE (test code=BARBITURN) <200 ng/mL URN BENZODIAZEPINE (test code=BENZOURN) <200 ng/mL URN OPIATES (test code=OPIATURN) <300 ng/mL URN PHENCYCLIDINE (PCP) (test code=PHENCURN) <25 ng/mL URN METHADONE (test code=METHAURN) <300 ng/mL Urine Source? Clean [id number] 22:17:00* Test Item Value Reference Range Comments GLYCOSYLATED HEMOGLOBIN (HA1C) (test code=GLYHGB) 5.3 % HbA1 4.8-6.0 ESTIMATED AVERAGE GLUCOSE (test code=EAG) 105 MG/DL BASIC METABOLIC [id number] 15:16:00* Test Item Value Reference Range Comments SODIUM (test code=NA) 142 mmol/L 136-145 POTASSIUM (test code=K) 4.0 mmol/L 3.5-5.1 CHLORIDE (test code=CL) 108.0 mmol/L 98-107 CARBON DIOXIDE (test code=CO2) 25.0 mmol/L 21-32 ANION GAP (test code=GAP) 13.0 10-20 GLUCOSE (test code=GLU) 107 mg/dL 74-106 BLOOD UREA NITROGEN (test code=BUN) 6 mg/dL 7-18 GLOMERULAR FILTRATION RATE (test code=GFR) > 60 mL/min >=60 Estimated GFR by using Modified MDRD formula.Chronic kidney disease is defined as either kidney damageor GFR <60 mL/min/1.73 m2 for >3 months. CREATININE (test code=CREAT) 0.70 mg/dL 0.55-1.02 Note change in reference range due to change in reagent. BUN/CREATININE RATIO (test code=BUN/CREA) 8.3 10-20 CALCIUM (test code=CA) 8.8 mg/dL 8.5-10.1 [id number] 15:16:00* Test Item Value Reference Range Comments MAGNESIUM (test code=MAG) 2.3 mg/dL 1.8-2.4 HCG SERUM [id number] 15:16:00* Test Item Value Reference Range Comments HCG SERUM QUAL (test code=HCGQL) NEGATIVE NEGATIVE This HCGQL test is NOT applicable for MALE patients.Check with nurse about probable order error.If Tumor Marker Test needed, nurse should order test "HCGTU"(Test #550.40834) THYROID PROFILE [id number] 15:16:00* Test Item Value Reference Range Comments T3 UPTAKE (test code=T3UP) 32.0 % 30.0-40.0 T4 (THYROXINE) (test code=T4) 7.8 ug/dL 4.5-13.9 T7 (FREE THYROXINE INDEX) (test code=T7) 2.49 FTI 1.3-5.1 THYROID STIMULATING HORMONE (test code=TSH) 0.527 uIU/mL 0.36-3.74 TSH REFERENCE RANGES: EUTHYROID: 0.35 - 4.3 mIU/mL HYPO : > 5.5 mIU/mL HYPER : < 0.35 mIU/mL [id number] 15:16:00* Test Item Value Reference Range Comments TROPONIN-I (test code=TROPI) <0.015 ng/mL 0-0.045 BASIC METABOLIC [id number] 15:09:00* Test Item Value Reference Range Comments SODIUM (test code=NA) 142 mmol/L 136-145 POTASSIUM (test code=K) 4.0 mmol/L 3.5-5.1 CHLORIDE (test code=CL) 108.0 mmol/L 98-107 CARBON DIOXIDE (test code=CO2) mmol/L 21-32 ANION GAP (test code=GAP) 10-20 GLUCOSE (test code=GLU) mg/dL 74-106 BLOOD UREA NITROGEN (test code=BUN) mg/dL 7-18 GLOMERULAR FILTRATION RATE (test code=GFR) mL/min >=60 CREATININE (test code=CREAT) mg/dL 0.55-1.02 BUN/CREATININE RATIO (test code=BUN/CREA) 10-20 CALCIUM (test code=CA) mg/dL 8.5-10.1 [id number] 15:09:00* Test Item Value Reference Range Comments MAGNESIUM (test code=MAG) mg/dL 1.8-2.4 HCG SERUM [id number] 15:09:00* Test Item Value Reference Range Comments HCG SERUM QUAL (test code=HCGQL) NEGATIVE NEGATIVE This HCGQL test is NOT applicable for MALE patients.Check with nurse about probable order error.If Tumor Marker Test needed, nurse should order test "HCGTU"(Test #550.53044) THYROID PROFILE [id number] 15:09:00* Test Item Value Reference Range Comments T3 UPTAKE (test code=T3UP) % 30.0-40.0 T4 (THYROXINE) (test code=T4) ug/dL 4.5-13.9 T7 (FREE THYROXINE INDEX) (test code=T7) FTI 1.3-5.1 THYROID STIMULATING HORMONE (test code=TSH) uIU/mL 0.36-3.74 [id number] 15:09:00* Test Item Value Reference Range Comments TROPONIN-I (test code=TROPI) ng/mL 0-0.045 [id number] 15:06:00* Test Item Value Reference Range Comments D-DIMER (test code=DDIMER) 36.00 ng/mLFEU 0-500 Clinical Cut-off value for D- Dimer is 500 ng/mL FEU. Comment: The [employer] D-Dimer assay is intended for use asan aid in the diagnosis of venous thromboembolism (VTE)[deep vein thrombosis (DVT) or pulmonary embolism (PE)].The measurement of D-Dimer should not be used as an aid inthe diagnosis of VTE, in patient with: -Therapeutic dose anticoagulant therapy for >24 hours -Fibrinolytic therapy within previous 7 days -Trauma or surgery within previous 4 weeks -Disseminated malignancies - Aortic aneurysm -Sepsis, severe infections, pneumonia, severe skin infections -Liver cirrhosis - - XR CHEST 1 [id number] 15:04:00 FAX: Siddharth Moon MD [phone] [place]: St: REG FAX: Hansel Adams MD [phone] Name: JOSÉ ANTONIO WHITE [facility] : 1975 Age/S: 43/F [address] [facility] Unit #: [id number] Loc: [place] [address] Phys: Hansel Adams MD Acct: [id number] Dis Date: Status: REG ER PHONE #: [phone] Exam Date: 04/03/2019 1447 FAX #: [phone] Reason: CHEST PAIN EXAMS: CPT CODE: [id number] XR CHEST 1 V [id number] REASON FOR EXAM: CHEST PAIN EXAM ORDER DATE: 04/03/2019 2:30 PM Ordering: Hansel Adams MD Attending:Hansel Adams MD Location:[facility] PROCEDURE: - XR CHEST 1 V COMPARISON: 07/21/2011 FINDINGS: Portable AP frontal view of the chest obtained at 2:52 PM shows clear lungs without evidence of consolidation. There is no evidence of effusion. The heart size is within normal limits. Pulmonary vasculatures are unremarkable. IMPRESSION: No active disease. at 3748 Reported and signed by: Tab Rabago M.D. CC: Siddharth Moon MD; Hansel Adams MD Technologist: KATIE VIERA Trnscrd Date/Time/By: 04/03/2019 (7831) : By: CarolineL Orig Print D/T: S: 04/03/2019 (9822) PAGE 1 Signed Report BASIC METABOLIC [id number] 15:03:00* Test Item Value Reference Range Comments SODIUM (test code=NA) mmol/L 136-145 POTASSIUM (test code=K) mmol/L 3.5-5.1 CHLORIDE (test code=CL) mmol/L 98-107 CARBON DIOXIDE (test code=CO2) mmol/L 21-32 ANION GAP (test code=GAP) 10-20 GLUCOSE (test code=GLU) mg/dL 74-106 BLOOD UREA NITROGEN (test code=BUN) mg/dL 7-18 GLOMERULAR FILTRATION RATE (test code=GFR) mL/min >=60 CREATININE (test code=CREAT) mg/dL 0.55-1.02 BUN/CREATININE RATIO (test code=BUN/CREA) 10-20 CALCIUM (test code=CA) mg/dL 8.5-10.1 [id number] 15:03:00* Test Item Value Reference Range Comments MAGNESIUM (test code=MAG) mg/dL 1.8-2.4 HCG SERUM [id number] 15:03:00* Test Item Value Reference Range Comments HCG SERUM QUAL (test code=HCGQL) NEGATIVE NEGATIVE This HCGQL test is NOT applicable for MALE patients.Check with nurse about probable order error.If Tumor Marker Test needed, nurse should order test "HCGTU"(Test #[id number]) THYROID PROFILE [id number] 15:03:00* Test Item Value Reference Range Comments T3 UPTAKE (test code=T3UP) % 30.0-40.0 T4 (THYROXINE) (test code=T4) ug/dL 4.5-13.9 T7 (FREE THYROXINE INDEX) (test code=T7) FTI 1.3-5.1 THYROID STIMULATING HORMONE (test code=TSH) uIU/mL 0.36-3.74 [id number] 15:03:00* Test Item Value Reference Range Comments TROPONIN-I (test code=TROPI) ng/mL 0-0.045 CBC W/O [id number] 14:57:00* Test Item Value Reference Range Comments WHITE BLOOD CELL (test code=WBC) 8.7 K/mm3 4.5-12.5 RED BLOOD CELL (test code=RBC) 4.21 mill/mm3 3.7-5.2 HEMOGLOBIN (test code=HGB) 9.5 gram/dL 11.5-15.5 HEMATOCRIT (test code=HCT) 33.3 % 36.0-46.0 MEAN CELL VOLUME (test code=MCV) 79.1 fL 80-98 MEAN CELL HGB (test code=MCH) 22.6 picogram 27.0-33.0 MEAN CELL HGB CONCETRATION (test code=MCHC) 28.5 gram/dL 33.0-36.0 RED CELL DISTRIBUTION WIDTH (test code=RDW) 15.2 % 11.6-16.2 PLATELET COUNT (test code=PLT) 283 K/mm3 150-450 MEAN PLATELET VOLUME (test code=MPV) 8.8 fL 6.7-11.0 CT BRAIN [id number] 20:29:00 [facility] [address] [place] [address] Patient Name: JOSÉ ANTONIO WHITE MR #: [id number] : 1975 Age/Sex: 43/F Req #: [id number] Adm Physician: Ordered by: CARLOS BARON MD Report #: [id number] Location: ER Room/Bed: Procedure: [id number] CT/CT BRAIN WO Exam Date: 08/03/18 Exam Time: 2018 REPORT STATUS: Signed Histo ry: Dizziness Comparison studies: None Technique: Axial images w ere obtained from the skull base to the vertex. Coronal and sagittal reconst ructions obtained from the axial data. Dose modulation, iterative reconstructi on, and/or weight based adjustment of the mA/kV was utilized to reduce the ra diation dose to as low as reasonably achievable. Intravenous contrast: N one Findings: Scalp/skull: No abnormalities. No fractures, blastic or lytic lesions. Extra-axial spaces: No masses. No fluid collections. Brain sulci: Appropriate for age. Ventricles: Normal in size and configur ation. No hydrocephalus. Parenchyma: No abnormal densities. No masses , hemorrhage, acute or chronic cortical vascular insults. Sellar/suprasella r region: No abnormalities Craniocervical junction: Patent foramen magnum. No Chiari one malformation. IMPRESSION: No abnormalities. Signed by: Dr. Luis E Wilson M.D. on 08/03/2018 8:30 PM Dictated By: LUIS E WILSON MD, MD 29 COPY TO: SCOTTY BARON MD
[2019-08-23] MEDS ORDERED: METOPROLOL TARTRATE INJ 1 MG/ML VIAL IV ONE (15:00)
[2019-08-23 15:14] LABS: BASOPHILS # (AUTO) 0.1 (0.0-0.1); BASOPHILS % 0.8 % (0.0-1.0); EOSINOPHILS % 0.1 % (0.0-6.0); HEMATOCRIT 31.6 % (34.2-44.1); HEMOGLOBIN 9.2 g/dL (12.0-16.0); LYMPHOCYTES # (AUTO) 2.7 (1.0-3.2); LYMPHOCYTES % 23.2 % (18.0-39.1); MEAN CORPUSCULAR HEMOGLOBIN 21.1 pg (28-32); MEAN CORPUSCULAR HGB CONC 29.1 g/dL (31-35); MEAN CORPUSCULAR VOLUME 72.5 fL (81-99); MONOCYTES # (AUTO) 0.8 (0.2-0.8); MONOCYTES % 6.5 % (4.4-11.3); PLATELET COUNT 413 x10e3/uL (140-360); RED BLOOD COUNT 4.36 x10e6/uL (3.6-5.1); RED CELL DISTRIBUTION WIDTH 15.8 % (11.7-14.4)
[2019-08-23 15:25] LABS: INR 0.94; PROTHROMBIN TIME 13.1 seconds (11.9-14.5)
[2019-08-23 15:26] LABS: PARTIAL THROMBOPLASTIN TIME 26.3 seconds (23.8-35.5)
[2019-08-23] MEDS ORDERED: DILTIAZEM HCL 5 MG/ML 5 ML VIAL IV STA (15:26)
[2019-08-23] MEDS ORDERED: SODIUM CHLORIDE 0.9% 500ML 500 ML IV ONE (15:30)
[2019-08-23] MEDS ORDERED: SODIUM CHLORIDE 0.9% 500ML 500 ML ONE (15:33)
[2019-08-23 15:36] LABS: ALANINE AMINOTRANSFERASE 15 IU/L (0-55); ALBUMIN 3.9 g/dL (3.5-5.0); ALBUMIN/GLOBULIN RATIO 1.3 (0.8-2.0); ALKALINE PHOSPHATASE 41 IU/L (40-150); ANION GAP 13.4 mmol/L (8-16); BLOOD UREA NITROGEN 10 mg/dL (7-26); BUN/CREATININE RATIO 12 (6-25); CALCIUM 9.1 mg/dL (8.4-10.2); CARBON DIOXIDE 26 mmol/L (22-29); CHLORIDE 103 mmol/L (98-107); CREATINE KINASE 57 IU/L (29-168); CREATININE, SERUM 0.82 mg/dL (0.57-1.11); EST GLOMERULAR FILTRATION RATE > 60 ML/MIN (60-); GLUCOSE 128 mg/dL (74-118); MAGNESIUM 1.9 MG/DL (1.3-2.1); POTASSIUM 4.4 mmol/L (3.5-5.1); SODIUM 138 mmol/L (136-145)
[2019-08-23] MEDS ORDERED: DILTIAZEM HCL 5 MG/ML 5 ML VIAL IV NR (15:45)
[2019-08-23] MEDS ORDERED: ACETAMINOPHEN 325 MG TAB PO ONE (15:45)
[2019-08-23] MEDS ORDERED: DILTIAZEM HCL 60 MG TAB PO SCH (16:00)
[2019-08-23 16:20] LABS: BILIRUBIN,URINE NEGATIVE (NEGATIVE); CLARITY,URINE SL CLOUDY (CLEAR); COLOR,URINE YELLOW (YELLOW); KETONES,URINE NEGATIVE (NEGATIVE); LEUKOCYTE ESTERASE ,URINE NEGATIVE (NEGATIVE); NITRITE,URINE NEGATIVE (NEGATIVE); PROTEIN,URINE DIPSTICK TRACE (NEGATIVE); URINE UROBILINOGEN 0.2 mg/dL (0.2 - 1)
[2019-08-23 16:31] LABS: AMORPHOUS SEDIMENT,URINE MODERATE (FEW); BACTERIA,URINE MODERATE /HPF; EPITHELIAL CELLS,URINE MODERATE /LPF
--- NOTE | 2019-08-23 16:32 | Diagnostic Imaging Report ---
EXAM: CHEST SINGLE (PORTABLE) DATE: 08/23/2019 2:49 PM INDICATION: Atrial fibrillation COMPARISON: 04/06/2018 FINDINGS: The trachea is midline. The lungs are symmetrically expanded without evidence for large focal consolidation, pneumothorax, or significant pleural effusion. The cardiac silhouette appears prominent which may be secondary to technique and is unchanged from the prior examination. Mediastinal contours are unremarkable. No acute osseous abnormalities identified. IMPRESSION: No acute cardiopulmonary process identified. Signed by: Dr. Brandt Knight MD on 08/23/2019 4:29 PM
[2019-08-23] MEDS: ENOXAPARIN SODIUM INJ 100 MG/ML SYR SC SCH (16:37)
[2019-08-23] MEDS ORDERED: ONDANSETRON HCL INJ 2MG/ML 2ML 2 MG/ML VIAL IV PRN (16:45)
[2019-08-23] MEDS ORDERED: FAMOTIDINE 20 MG/2 ML VIAL IV SCH (16:45)
[2019-08-23] MEDS: SODIUM CHLORIDE 0.9% 1000ML 1,000 ML IV SCH (16:48)
--- NOTE | 2019-08-23 17:40 | NUR ---
RECEIVED PT FROM ED, TELE BOX ATTACHED, PT AMBULATORY TO BED, VS STABLE, CALL WAS PLACED TO Sulema ALMARAZ REGARDING AFIB RVR, ADMISSION ASSESSMENT COMPLETE
[2019-08-23 17:43] VITALS: BP 109/67
--- NOTE | 2019-08-23 17:58 | NUR ---
GAVE PACKET OF INFORMATION WITH COMM[employer]ITY [employer] FOR ASSISTANCE WITH LOW TO NO INCOME TO PATIENT. RESOURCES THAT PATIENT MAY BE ABLE TO FOLLOW UP UPON DISCHARGE. PT EDUCATED ON EACH RESOURCE AND UNDERSTANDING HOW TO FOLLOW UP TO SEE IF QUALIFIED FOR EACH RESOURCE.
[2019-08-23] MEDS ORDERED: DILTIAZEM HCL ER 90MG CAPSULE PO SCH (18:00)
[2019-08-23] MEDS ORDERED: METOPROLOL TART25 MG PO (18:03)
--- NOTE | 2019-08-23 18:13 | NUR ---
SPOKE WITH SAMI, MARKETING AUTOMATION MANAGER WITH MD DIA TO MAKE AWARE THAT PT IS REQUESTING TO HAVE Nick ALMARAZ ATTENDING , WILL NOTIFY SAMI OF HIS DECISION, TELEPHONED MD Nick ALMARAZ PER PT REQUEST TO HAVE HIM HER ATTENDING DURING THIS HOSPITAL VISIT, SPOKE WITH MARTHA, AWAITING CALL BACK
[2019-08-23] MEDS ORDERED: DIGOXIN INJ 0.25 MG/ML 2 ML AMP IV ONE (18:15)
--- NOTE | 2019-08-23 18:15 | NUR ---
SPOKE WITH DR Sulema ALMARAZ REGARDING PT IN AFIB RVR, ORDERS GIVEN
[2019-08-23] MEDS ORDERED: METOPROLOL TARTRATE INJ 1 MG/ML VIAL IV SCH (18:30)
[2019-08-23] MEDS ORDERED: DIGOXIN INJ 0.25 MG/ML 2 ML AMP IV SCH (18:30)
[2019-08-23] MEDS ORDERED: METOPROLOL TARTRATE INJ 1 MG/ML VIAL IV PRN (18:45)
--- NOTE | 2019-08-23 18:55 | NUR ---
SPOKE WITH Nick ALMARAZ, STATES "HE IS NOT COMING TO THE HOSPITAL", SPOKE WITH MARISSA GALLARDO, MADE AWARE
--- NOTE | 2019-08-23 19:30 | NUR ---
received report from day nurse. patient is resting comfortably in the bed. bed is in the lowest position and call light is within reach. Will continue to monitor patient.
[2019-08-23 20:00] VITALS: BP 173/83
[2019-08-23 21:18] VITALS: BP 173/83
[2019-08-24] VITALS (8 sets, daily range): BP systolic 94–136; BP diastolic 56–88
[2019-08-24] MEDS: METOPROLOL TARTRATE 25 MG TAB PO SCH ×2 (00:39→06:39)
[2019-08-24 01:34] LABS: CREATINE KINASE MB 1.1 ng/mL (0-5.0)
[2019-08-24] MEDS: SODIUM CHLORIDE 0.9% 1000ML 1,000 ML IV SCH (02:13)
[2019-08-24] MEDS: ENOXAPARIN SODIUM INJ 100 MG/ML SYR SC SCH (04:23)
[2019-08-24 06:09] LABS: BASOPHILS # (AUTO) 0.1 (0.0-0.1); BASOPHILS % 0.8 % (0.0-1.0); EOSINOPHILS % 0.4 % (0.0-6.0); HEMATOCRIT 26.4 % (34.2-44.1); HEMOGLOBIN 7.5 g/dL (12.0-16.0); LYMPHOCYTES # (AUTO) 3.1 (1.0-3.2); LYMPHOCYTES % 38.2 % (18.0-39.1); MEAN CORPUSCULAR HEMOGLOBIN 20.8 pg (28-32); MEAN CORPUSCULAR HGB CONC 28.4 g/dL (31-35); MEAN CORPUSCULAR VOLUME 73.3 fL (81-99); MONOCYTES # (AUTO) 0.8 (0.2-0.8); MONOCYTES % 9.6 % (4.4-11.3); NEUTROPHILS # (AUTO) 4.1 (2.1-6.9); NEUTROPHILS % 50.7 % (38.7-80.0); PLATELET COUNT 326 x10e3/uL (140-360); RED CELL DISTRIBUTION WIDTH 15.9 % (11.7-14.4)
[2019-08-24 06:29] LABS: ALANINE AMINOTRANSFERASE 13 IU/L (0-55); ALBUMIN 3.5 g/dL (3.5-5.0); ALBUMIN/GLOBULIN RATIO 1.3 (0.8-2.0); ALKALINE PHOSPHATASE 38 IU/L (40-150); ANION GAP 13.1 mmol/L (8-16); BLOOD UREA NITROGEN 9 mg/dL (7-26); BUN/CREATININE RATIO 13 (6-25); CALCIUM 7.9 mg/dL (8.4-10.2); CARBON DIOXIDE 23 mmol/L (22-29); CHLORIDE 107 mmol/L (98-107); CHOL/HDL RATIO 5.6 (3.0-3.6); CHOLESTEROL 185 MD/DL (0-199); CREATININE, SERUM 0.69 mg/dL (0.57-1.11); EST GLOMERULAR FILTRATION RATE > 60 ML/MIN (60-); GLUCOSE 101 mg/dL (74-118); HDL CHOLESTEROL 33 MG/DL (40-60); LDL CHOLESTEROL 98 MG/DL (60-130); POTASSIUM 4.1 mmol/L (3.5-5.1); SODIUM 139 mmol/L (136-145); TRIGLYCERIDES 270 MG/DL (0-149)
[2019-08-24 06:49] LABS: CREATINE KINASE MB 0.9 ng/mL (0-5.0)
--- NOTE | 2019-08-24 07:00 | NUR ---
REPORT RECEIVED, WALKING ROUND PERFORMED, PT UP TO RESTROOM, ASSISTED BACK TO BED, RESTING QUIETLY IN BED, CALL LIGHT WITHIN REACH
--- NOTE | 2019-08-24 07:10 | NUR ---
REPORT GIVEN TO DAY NURSE. PATIENT IS RESTING COMFORTABLY IN THE BED. BED IS IN THE LOWEST POSITION AND CALL LIGHT IS WITHIN REACH.
[2019-08-24] MEDS: ASPIRIN 81 MG ENTERIC COATED PO SCH (07:33)
[2019-08-24] MEDS: FAMOTIDINE 20 MG TAB PO SCH ×2 (07:33→16:41)
[2019-08-24] MEDS: DILTIAZEM HCL ER 90MG CAPSULE PO SCH ×2 (08:21→16:42)
[2019-08-24] MEDS: ACETAMINOPHEN 325 MG TAB PO PRN (10:23)
--- NOTE | 2019-08-24 10:28 | NUR ---
MARISSA GALLARDO HERE FOR DR DIA, NEW ORDERS GIVEN, CALL WAS PLACED TO DR Sulema ALMARAZ REGARDING AFIB WITH FLUCTUATING HR, NEW ORDERS GIVEN
[2019-08-24] MEDS ORDERED: DIGOXIN INJ 0.25 MG/ML 2 ML AMP IV ONE (10:30)
[2019-08-24] MEDS: METOPROLOL TARTRATE 50 MG TAB PO SCH ×2 (12:18→17:52)
[2019-08-24] MEDS: APIXAB 2.5 MG TABLET PO SCH (16:42)
[2019-08-24] MEDS ORDERED: ONDANSETRON HCL 4 MG ORAL DISINTEGRATING TAB PO PRN (19:30)
--- NOTE | 2019-08-24 19:30 | NUR ---
received report from day nurse. patient id resting comfortably in bed. bed is in lowest position and call light is within reach. Denies pain or discomfort. will continue to monitor patient.
--- NOTE | 2019-08-24 22:06 | Consultation ---
DATE OF CONSULTATION: 08/24/2019 Cardiology Consult Note REASON FOR CONSULT: AFib with RVR. CHIEF COMPLAINT: Palpitations. HISTORY OF PRESENT ILLNESS: A 44-year-old female with 2-year history of paroxysmal atrial fibrillation. She presents once again with feeling her heart racing and palpitations and noted to be in AFib with RVR, heart rates in the 150s to 160s. She says she used to take apixaban, however, was recently discontinued. She was taking her metoprolol as prescribed. She said her AFib history started 2 years ago, but this past year has become more frequent and she has had 3 or 4 episodes requiring ER visits and hospitalizations. Denies any chest pain or heart failure symptoms. No fevers, chills, cough, chest pain, or heart failure symptoms. PAST MEDICAL HISTORY: Notable for hypertension, obesity, and paroxysmal AFib. SOCIAL HISTORY: Does not smoke, drink, or abuse drugs. FAMILY HISTORY: Noncontributory. OUTPATIENT MEDICATIONS: Reviewed. ALLERGIES: REVIEWED. NO KNOWN DRUG ALLERGIES. OBJECTIVE: VITAL SIGNS: Temperature 97.7 with pulse 110, respiratory rate 20, blood pressure 135/78, saturating 97% on nasal cannula. GENERAL: female, well developed, well nourished, in no acute distress. CARDIOVASCULAR: Irregular rate and rhythm. Tachycardic. No murmurs, rubs, or gallops. Difficult exam due to body habitus. LUNGS: Clear to auscultation anteriorly. ABDOMEN: Obese, soft, nontender, nondistended. NEURO AND PSYCH: Alert and oriented to person, place, and time. Normal affect. INPATIENT MEDICATIONS: Reviewed. LABORATORY DATA: Reviewed. Troponins negative x2. BNP 400. TELEMETRY DATA: Reviewed, shows AFib with RVR, heart rates in the 110s, currently, but was as high as in the 150s earlier this morning. IMAGING DATA: Reviewed. Chest x-ray shows no acute cardiopulmonary process. ASSESSMENT: 1. Paroxysmal atrial fibrillation. 2. Atrial fibrillation with rapid ventricular response. PLAN: We will up titrate metoprolol to 50 mg q.6 hours, 2 doses of IV digoxin was given. Restart home apixaban and Lovenox. If the patient does not convert to sinus or become rate controlled after receiving AV criss blockers, we will consider antiarrhythmic tomorrow. Thank you for this consult. We will continue to follow. MD HANNAH Guerra/SABINE /[id number]
[2019-08-25] VITALS (9 sets, daily range): BP systolic 93–150; BP diastolic 55–94
[2019-08-25] MEDS: METOPROLOL TARTRATE 50 MG TAB PO SCH ×4 (05:04→17:55)
[2019-08-25 06:14] LABS: BASOPHILS % 0.5 % (0.0-1.0); EOSINOPHILS % 0.5 % (0.0-6.0); HEMOGLOBIN 7.5 g/dL (12.0-16.0); LYMPHOCYTES # (AUTO) 2.4 (1.0-3.2); LYMPHOCYTES % 40.8 % (18.0-39.1); MEAN CORPUSCULAR HEMOGLOBIN 20.5 pg (28-32); MEAN CORPUSCULAR HGB CONC 27.8 g/dL (31-35); MONOCYTES # (AUTO) 0.6 (0.2-0.8); MONOCYTES % 9.7 % (4.4-11.3); NEUTROPHILS # (AUTO) 2.8 (2.1-6.9); NEUTROPHILS % 48.2 % (38.7-80.0); PLATELET COUNT 273 x10e3/uL (140-360); RED BLOOD COUNT 3.65 x10e6/uL (3.6-5.1); RED CELL DISTRIBUTION WIDTH 15.6 % (11.7-14.4)
--- NOTE | 2019-08-25 06:39 | NUR ---
patient is resting in the bed, bed is in the lowest position and call light is within reach. No signs of pain or discomfort noted.
[2019-08-25 06:46] LABS: ANION GAP 11.8 mmol/L (8-16); BLOOD UREA NITROGEN 6 mg/dL (7-26); BUN/CREATININE RATIO 9 (6-25); CALCIUM 8.5 mg/dL (8.4-10.2); CARBON DIOXIDE 24 mmol/L (22-29); CHLORIDE 106 mmol/L (98-107); EST GLOMERULAR FILTRATION RATE > 60 ML/MIN (60-); GLUCOSE 98 mg/dL (74-118); POTASSIUM 3.8 mmol/L (3.5-5.1); SODIUM 138 mmol/L (136-145)
[2019-08-25] MEDS: FAMOTIDINE 20 MG TAB PO SCH ×2 (08:30→17:55)
[2019-08-25] MEDS: APIXAB 2.5 MG TABLET PO SCH ×2 (09:24→17:00)
[2019-08-25] MEDS: ASPIRIN 81 MG ENTERIC COATED PO SCH (09:24)
[2019-08-25] MEDS: DILTIAZEM HCL ER 90MG CAPSULE PO SCH (09:24)
--- NOTE | 2019-08-25 09:45 | NUR ---
SAMI HOME CARE SCHEDULER WITH MD DIA INTO SEE PT, DISCUSSED POC, MADE AWARE OF ELEVATED HR AT CURRENT TIME
[2019-08-25] MEDS ORDERED: FLECAINIDE ACETATE 100 MG TAB PO ONE (13:30)
--- NOTE | 2019-08-25 13:39 | NUR ---
MD Lázaro ALMARAZ INTO SEE PT, MADE AWARE PT DID NOT RECEIVE 2 DOSES OF METOPROLOL IN PM DUE TO LOW BLOOD PRESSURE, NEW PARAMETERS ORDERED
--- NOTE | 2019-08-25 19:30 | NUR ---
received report from day nurse. patient is resting comfortably in the bed. bed is in lowest position and call light is within reach. will continue to monitor patient.
[2019-08-25] MEDS ORDERED: DILTIAZEM HCL ER 90MG CAPSULE PO SCH (21:00)
--- NOTE | 2019-08-25 23:13 | Progress Note ---
DATE: 08/25/2019 Cardiology Progress Note SUBJECTIVE: Converted to normal sinus rhythm after receiving a dose of flecainide. OBJECTIVE: VITAL SIGNS: Temperature afebrile, pulse 71, respiratory rate 18, blood pressure 109/58, and saturating 98% on room air. GENERAL: Middle-aged female, in no acute distress. CARDIOVASCULAR: Regular rate and rhythm. No murmurs, rubs, or gallops. LUNGS: Clear to auscultation bilaterally. ABDOMEN: Soft, nontender, and nondistended. NEURO AND PSYCH: Alert and oriented to person, place, and time. Normal affect. INPATIENT MEDICATIONS: Reviewed. LABORATORY DATA: Reviewed. TELEMETRY DATA: Reviewed, shows atrial fibrillation with rapid ventricular response, now converted to normal sinus rhythm. ASSESSMENT AND PLAN: Atrial fibrillation with rapid ventricular response. PLAN: Continue metoprolol, up titrate as necessary. We will plan to discharge tomorrow if remains in sinus rhythm with plan for continued flecainide therapy as a bridge to outpatient ablation. Thank you for this consult. We will continue to follow. MD HANNAH Guerra/SABINE /[id number]
[2019-08-26] MEDS: METOPROLOL TARTRATE 50 MG TAB PO SCH ×3 (00:13→12:04)
[2019-08-26 04:22] VITALS: BP 99/55
[2019-08-26 05:46] LABS: BASOPHILS % 0.5 % (0.0-1.0); EOSINOPHILS % 0.5 % (0.0-6.0); HEMATOCRIT 27.5 % (34.2-44.1); HEMOGLOBIN 7.8 g/dL (12.0-16.0); LYMPHOCYTES # (AUTO) 2.6 (1.0-3.2); LYMPHOCYTES % 35.6 % (18.0-39.1); MEAN CORPUSCULAR HEMOGLOBIN 20.9 pg (28-32); MEAN CORPUSCULAR HGB CONC 28.4 g/dL (31-35); MEAN CORPUSCULAR VOLUME 73.5 fL (81-99); MONOCYTES # (AUTO) 0.7 (0.2-0.8); MONOCYTES % 9.4 % (4.4-11.3); NEUTROPHILS # (AUTO) 3.9 (2.1-6.9); NEUTROPHILS % 53.6 % (38.7-80.0); PLATELET COUNT 288 x10e3/uL (140-360); RED BLOOD COUNT 3.74 x10e6/uL (3.6-5.1); RED CELL DISTRIBUTION WIDTH 15.7 % (11.7-14.4)
[2019-08-26 06:14] LABS: BLOOD UREA NITROGEN 8 mg/dL (7-26); BUN/CREATININE RATIO 11 (6-25); CALCIUM 8.6 mg/dL (8.4-10.2); CARBON DIOXIDE 28 mmol/L (22-29); CHLORIDE 103 mmol/L (98-107); CREATININE, SERUM 0.74 mg/dL (0.57-1.11); EST GLOMERULAR FILTRATION RATE > 60 ML/MIN (60-); GLUCOSE 90 mg/dL (74-118); MAGNESIUM 1.9 MG/DL (1.3-2.1); SODIUM 139 mmol/L (136-145)
--- NOTE | 2019-08-26 06:38 | NUR ---
patient is resting in the bed, bed is in the lowest position and call light is within reach. No signs of pain or discomfort noted.
--- NOTE | 2019-08-26 07:17 | NUR ---
RECEIVED REPORT FROM EQUIPMENT SERVICES ASSOCIATE NURSE, PATIENT AWAKE IN BED, NO DISTRESS NOTED. BED IS LOW AND LOCKED, SIDE RAILS UPX2, CALL LIGHT WITHIN REACH.
[2019-08-26 07:28] VITALS: BP 99/65
[2019-08-26] MEDS: ACETAMINOPHEN 325 MG TAB PO PRN (07:36)
[2019-08-26] MEDS: FAMOTIDINE 20 MG TAB PO SCH (07:36)
[2019-08-26 08:10] VITALS: BP 127/60
[2019-08-26] MEDS: ASPIRIN 81 MG ENTERIC COATED PO SCH (09:43)
[2019-08-26] MEDS: APIXAB 2.5 MG TABLET PO SCH (09:43)
[2019-08-26] MEDS ORDERED: ELIQUIS2.5 MG PO (10:15)
[2019-08-26] MEDS ORDERED: METOPROLOL TART50 MG PO (10:15)
--- NOTE | 2019-08-26 11:10 | NUR ---
Pt. expressed no spiritual or emotional concerns at this time. Pt expressed appreciation for visit. [employer] provided hospitality and information on how to reach applications sales representative, if needed. QUETA GREGORIO [employer] Spiritual Care Department O: [phone]
[2019-08-26 11:29] VITALS: BP 100/58
--- NOTE | 2019-08-26 13:00 | NUR ---
SPOKE TO VONDA GALLARDO DR., REGARDING DR. BARRY DISCHARGING PATIENT FROM HIS STANDPOINT. NOTIFIED VONDA GALLARDO OF PATIENT'S HEMOGLOBIN OF 7.8 TODAY. PER VONDA GALLARDO OK TO D/C PATIENT HOME.
[2019-08-26] MEDS ORDERED: FLECAINIDE ACE100 MG PO (13:42)
--- NOTE | 2019-08-26 14:00 | NUR ---
EDUCATED PATIENT REGARDING D/C INSTRUCTIONS AND PRESCRIPTIONS, PATIENT VERBALIZED UNDERSTANDING,PT TO F/U WITH OPERATIONAL INTELLIGENCE ANALYST AND PCP, PHONE NUMBER TO DR. Lázaro ALMARAZ'S OFFICE PROVIDED TO PATIENT. IV TO LEFT AC REMOVED, 2X2 AND TAPE APPLIED. PATIENT WHEELED OUT TO PRIVATE AUTO BY STAFF. NO DISTRESS NOTED. Addendum: 08/26/19 at 1407 by Tiny Chavez RN NO QUESTIONS OR CONCERNS VOICED.
--- NOTE | 2019-08-27 07:03 | Progress Note ---
DATE: 08/26/2019 Cardiology Progress Note SUBJECTIVE: The patient feels tired but denies any chest pain or palpitations. OBJECTIVE: VITAL SIGNS: Temperature is 97.9, heart rate is 58, respirations are 16, blood pressure is 100/58, ox saturation 96% on room air. GENERAL: Well appearing. No apparent distress. CARDIOVASCULAR: Regular rate and rhythm. LUNGS: Clear to auscultation. ABDOMEN: Soft, nontender, nondistended. EXTREMITIES: No edema. TELEMETRY: Monitoring revealed normal sinus rhythm. LABORATORY DATA: Reviewed. IMPRESSION: 1. Atrial fibrillation with right ventricular response. 2. Obesity. RECOMMENDATIONS: Continue metoprolol. The patient was converted with flecainide therapy. We will continue this at 50 mg q.12 hours as an outpatient. Continue Eliquis for anticoagulation. The patient may be discharged from a cardiovascular standpoint with outpatient followup with Dr. Cowan for possible DICTATION ENDS HERE DO SARKIS Munoz/LEANNEL /[id number]
--- NOTE | 2019-08-27 19:06 | Discharge Summary ---
ADMISSION DIAGNOSES: 1. Atrial fibrillation with RVR. 2. Morbid obesity with a BMI of 46.4. DISCHARGE DIAGNOSES: 1. Atrial fibrillation with RVR. 2. Morbid obesity with a BMI of 46.4. HISTORY: TIA, atrial fibrillation with RVR, and mitral valve prolapse. SURGICAL HISTORY: Cholecystectomy, bunionectomy, appendectomy, and tubal ligation. FAMILY HISTORY: The patient's grandmother, grandfather, aunts and uncles had cancer. SOCIAL HISTORY: Occasional alcohol use. HOSPITAL COURSE: A 44-year-old female admits with complaints of palpitations that began yesterday around 10 a.m. She had associated dizziness. She denies chest pain and nausea and vomiting. She has been taking Eliquis for about 10-12 years, but was recently taken off Eliquis by her primary care doctor in July. She says her atrial fibrillation medications have not changed in about three years. On admission, the patient was given diltiazem IV, started on metoprolol p.o. and Lovenox. Echo showed an EF of 55%. EKG in the ER showed atrial fibrillation, RVR at a rate of 167. Chest x-ray was negative. Cardiology was consulted, who uptitrated metoprolol, which did not control the arrhythmia. The patient was then started on flecainide, which helped to convert her. She will discharge home with prescription for Eliquis and metoprolol 50 q.6h and flecainide 50 mg b.i.d. She will follow up with primary care and Cardiology in 1 to 2 weeks. The patient understands discharge instructions and agrees to plan. Vital signs stable and the patient is afebrile. Dictated by Veda Terry NP MD JAY Collado/MODL /[id number]
== END 2019-08-26 14:00 | disposition home or self-care (01) | DRG 309 ==
LOC: ER 14:39 → ERHOLD 16:31 → MED/SURG 17:41 → OBSVTOIN 08-25 11:00
PROVIDERS: ADMIT Internal Medicine; ATTEND Internal Medicine
DX: I48.0 Paroxysmal atrial fibrillation (principal); Z68.42 Body mass index [BMI] 45.0-49.9, adult; Z79.01 Long term (current) use of anticoagulants; E66.01 Morbid (severe) obesity due to excess calories; Z86.73 Personal history of transient ischemic attack (TIA), and cerebral infarction without residual deficits; I34.1 Nonrheumatic mitral (valve) prolapse; Z90.49 Acquired absence of other specified parts of digestive tract
CPT/HCPCS: 36415; 71045; 80048; 80053; 80061; 81001; 82550; 82553; 83735; 83880; 84443; 84484; 85025; 85610; 85730; 87086; 93005; 93306; 99284; G0378; J1160; J1650; J7030; J7040

== ENCOUNTER 2020-04-28 03:59 | Inpatient (IN) | payer SELFPAY ==
[~2020-04-28] VITALS: Ht 165.1 cm; Wt 127.0 kg
[2020-04-28] VITALS (19 sets, daily range): BP systolic 90–113; BP diastolic 52–92
[~2020-04-28 03:59] MED LIST changes: +ELIQUIS2.5 MG PO; +FLECAINIDE ACE100 MG PO; +METOPROLOL TART50 MG PO
[2020-04-28] MEDS ORDERED: DILTIAZEM HCL VIAL 5 ML ONE (04:17)
[2020-04-28] MEDS ORDERED: SODIUM CHLORIDE 0.9% 1000ML 1,000 ML ONE (04:17)
[2020-04-28] MEDS ORDERED: DILTIAZEM HCL 5 MG/ML 5 ML VIAL IV STA (04:17)
[2020-04-28 04:24] LABS: BASOPHILS # (AUTO) 0.1 (0.0-0.1); BASOPHILS % 0.5 % (0.0-1.0); EOSINOPHILS % 0.1 % (0.0-6.0); HEMATOCRIT 28.2 % (34.2-44.1); HEMOGLOBIN 7.8 g/dL (12.0-16.0); LYMPHOCYTES # (AUTO) 2.4 (1.0-3.2); LYMPHOCYTES % 22.2 % (18.0-39.1); MEAN CORPUSCULAR HEMOGLOBIN 19.7 pg (28-32); MEAN CORPUSCULAR HGB CONC 27.7 g/dL (31-35); MEAN CORPUSCULAR VOLUME 71.2 fL (81-99); MONOCYTES # (AUTO) 0.8 (0.2-0.8); MONOCYTES % 7.4 % (4.4-11.3); NEUTROPHILS # (AUTO) 7.4 (2.1-6.9); NEUTROPHILS % 69.2 % (38.7-80.0); PLATELET COUNT 380 x10e3/uL (140-360); RED BLOOD COUNT 3.96 x10e6/uL (3.6-5.1); RED CELL DISTRIBUTION WIDTH 16.7 % (11.7-14.4)
[2020-04-28] MEDS ORDERED: SODIUM CHLORIDE 0.9% 1000ML 1,000 ML IV ONE (04:30)
[2020-04-28 04:37] LABS: ALANINE AMINOTRANSFERASE 24 IU/L (0-55); ALBUMIN 3.9 g/dL (3.5-5.0); ALBUMIN/GLOBULIN RATIO 1.4 (0.8-2.0); ALKALINE PHOSPHATASE 37 IU/L (40-150); ANION GAP 17.7 mmol/L (8-16); BLOOD UREA NITROGEN 12 mg/dL (7-26); BUN/CREATININE RATIO 15 (6-25); CALCIUM 8.8 mg/dL (8.4-10.2); CARBON DIOXIDE 19 mmol/L (22-29); CHLORIDE 104 mmol/L (98-107); CREATINE KINASE 38 IU/L (29-168); CREATININE, SERUM 0.78 mg/dL (0.57-1.11); EST GLOMERULAR FILTRATION RATE > 60 ML/MIN (60-); GLUCOSE 122 mg/dL (74-118); POTASSIUM 4.7 mmol/L (3.5-5.1); SODIUM 136 mmol/L (136-145)
[2020-04-28] MEDS ORDERED: DILTIAZEM HCL 125 ML IV SCH (04:45)
[2020-04-28] MEDS ORDERED: SODIUM CHLORIDE 0.9% 100 ML ONE (04:55)
[2020-04-28] MEDS ORDERED: DILTIAZEM HCL IV 5MG/ML 25 ML VIAL ONE (04:56)
[2020-04-28] MEDS ORDERED: ONDANSETRON HCL INJ 2MG/ML 2ML 2 MG/ML VIAL IV PRN ×2 (05:30→08:15)
[2020-04-28] MEDS ORDERED: ONDANSETRON HCL INJ 2MG/ML 2ML 2 MG/ML VIAL ONE (05:39)
[2020-04-28] MEDS ORDERED: METOPROLOL TARTRATE INJ 1 MG/ML VIAL IV ONE (07:30)
[2020-04-28] MEDS ORDERED: METOPROLOL TARTRATE INJ 1 MG/ML VIAL IV NR (07:45)
[2020-04-28] MEDS ORDERED: METOPROLOL TARTRATE INJ 1 MG/ML VIAL IV PRN (08:15)
[2020-04-28] MEDS ORDERED: ACETAMINOPHEN 325 MG TAB PO PRN (08:15)
[2020-04-28] MEDS: FUROSEMIDE INJ 10 MG/ML 4 ML VIAL IV SCH ×2 (08:51→21:00)
[2020-04-28] MEDS: APIXAB 2.5 MG TABLET PO SCH ×2 (08:52→16:06)
[2020-04-28] MEDS: POTASSIUM CHLORIDE 20 MEQ TAB CR PO SCH ×2 (09:00→15:35)
[2020-04-28] MEDS ORDERED: ASPIRIN 81 MG ENTERIC COATED PO SCH (09:00)
[2020-04-28] MEDS: FLECAINIDE ACETATE 100 MG TAB PO SCH ×2 (09:03→16:06)
[2020-04-28] MEDS ORDERED: AMIODARONE HCL 150 MG/100 ML BAG IV NR (10:45)
[2020-04-28] MEDS ORDERED: AMIODARONE 900MG 500 ML IV ONE (11:00)
[2020-04-28 11:31] LABS: FREE T4 (FREE THYROXINE) 1.13 ng/dL (0.8-1.8); THYROID STIMULATING HORMONE 0.99 uIU/mL (0.350-4.940)
[2020-04-28] MEDS: METOPROLOL TARTRATE 50 MG TAB PO SCH ×3 (11:55→23:07)
[2020-04-28 12:01] LABS: % IRON SATURATION 4 % (15-50); IRON 21 ug/dL (50-170); TOTAL IRON BINDING CAPACITY 535 ug/dL (261-478); TRANSFERRIN 382 mg/dL (180-382)
[2020-04-28] MEDS: SODIUM FERRIC GLUCONATE COMPLX 125 MG in SODIUM CHLORIDE 0.9% 100 ML 100 ML IV SCH (12:37)
[2020-04-28 14:14] LABS: CREATINE KINASE MB 0.5 ng/mL (0-5.0)
[2020-04-28] MEDS: FAMOTIDINE 20 MG TAB PO SCH (15:35)
[2020-04-29] VITALS (21 sets, daily range): BP systolic 93–150; BP diastolic 52–89
[2020-04-29 04:44] LABS: BASOPHILS # (AUTO) 0.1 (0.0-0.1); BASOPHILS % 0.9 % (0.0-1.0); EOSINOPHILS % 0.4 % (0.0-6.0); HEMOGLOBIN 7.3 g/dL (12.0-16.0); LYMPHOCYTES # (AUTO) 2.7 (1.0-3.2); LYMPHOCYTES % 27.2 % (18.0-39.1); MEAN CORPUSCULAR HEMOGLOBIN 20.7 pg (28-32); MEAN CORPUSCULAR HGB CONC 28.1 g/dL (31-35); MEAN CORPUSCULAR VOLUME 73.7 fL (81-99); MONOCYTES # (AUTO) 0.9 (0.2-0.8); MONOCYTES % 8.7 % (4.4-11.3); NEUTROPHILS # (AUTO) 6.2 (2.1-6.9); NEUTROPHILS % 62.4 % (38.7-80.0); PLATELET COUNT 332 x10e3/uL (140-360); RED BLOOD COUNT 3.53 x10e6/uL (3.6-5.1); RED CELL DISTRIBUTION WIDTH 17.1 % (11.7-14.4)
[2020-04-29 04:58] LABS: ALANINE AMINOTRANSFERASE 19 IU/L (0-55); ALBUMIN 3.9 g/dL (3.5-5.0); ALBUMIN/GLOBULIN RATIO 1.4 (0.8-2.0); ALKALINE PHOSPHATASE 40 IU/L (40-150); ANION GAP 14.7 mmol/L (8-16); BLOOD UREA NITROGEN 15 mg/dL (7-26); BUN/CREATININE RATIO 19 (6-25); CALCIUM 8.3 mg/dL (8.4-10.2); CARBON DIOXIDE 21 mmol/L (22-29); CHLORIDE 105 mmol/L (98-107); CREATININE, SERUM 0.81 mg/dL (0.57-1.11); EST GLOMERULAR FILTRATION RATE > 60 ML/MIN (60-); GLUCOSE 99 mg/dL (74-118); POTASSIUM 3.7 mmol/L (3.5-5.1); SODIUM 137 mmol/L (136-145)
[2020-04-29 05:16] LABS: CHOL/HDL RATIO 4.9 (3.0-3.6)
[2020-04-29] MEDS: METOPROLOL TARTRATE 50 MG TAB PO SCH ×4 (05:39→17:00)
[2020-04-29 06:06] LABS: CREATINE KINASE MB 0.4 ng/mL (0-5.0)
[2020-04-29 06:47] LABS: BAND NEUTROPHILS % (MANUAL) 7 %; LYMPHOCYTES % (MANUAL) 19 % (19-48); MONOCYTES % (MANUAL) 6 % (3.4-9.0); NEUTROPHILS % (MANUAL) 68 % (40-74)
[2020-04-29 06:48] LABS: POLYCHROMASIA FEW
[2020-04-29 06:49] LABS: ANISOCYTOSIS FEW; PLATELET ESTIMATE ADEQUATE; PLATELET MORPHOLOGY COMMENT NORMAL
[2020-04-29 06:50] LABS: RBC MORPHOLOGY COMMENT ABNORMAL; STOMATOCYTES FEW
[2020-04-29] MEDS: FAMOTIDINE 20 MG TAB PO SCH ×2 (07:25→16:59)
[2020-04-29] MEDS: POTASSIUM CHLORIDE 20 MEQ TAB CR PO SCH ×2 (08:00→16:59)
[2020-04-29] MEDS: FLECAINIDE ACETATE 100 MG TAB PO SCH ×2 (08:00→17:00)
[2020-04-29] MEDS: APIXAB 2.5 MG TABLET PO SCH ×2 (08:00→16:59)
[2020-04-29] MEDS ORDERED: AMIODARONE HCL 200 MG TAB PO SCH (09:00)
[2020-04-29] MEDS: SODIUM FERRIC GLUCONATE COMPLX 125 MG in SODIUM CHLORIDE 0.9% 100 ML 100 ML IV SCH (09:55)
[2020-04-29] MEDS: FUROSEMIDE INJ 10 MG/ML 4 ML VIAL IV SCH ×2 (09:55→21:00)
[2020-04-29] MEDS: AMIODARONE HCL 200 MG TAB PO SCH ×2 (10:59→16:59)
[2020-04-30] VITALS: BP 110/57
[2020-04-30 04:00] VITALS: BP 98/60
[2020-04-30 05:59] LABS: BASOPHILS # (AUTO) 0.1 (0.0-0.1); BASOPHILS % 0.9 % (0.0-1.0); EOSINOPHILS % 0.5 % (0.0-6.0); HEMATOCRIT 27.9 % (34.2-44.1); HEMOGLOBIN 7.7 g/dL (12.0-16.0); LYMPHOCYTES # (AUTO) 2.6 (1.0-3.2); MEAN CORPUSCULAR HEMOGLOBIN 20.3 pg (28-32); MEAN CORPUSCULAR HGB CONC 27.6 g/dL (31-35); MEAN CORPUSCULAR VOLUME 73.4 fL (81-99); MONOCYTES # (AUTO) 0.8 (0.2-0.8); MONOCYTES % 10.5 % (4.4-11.3); NEUTROPHILS # (AUTO) 4.1 (2.1-6.9); NEUTROPHILS % 53.2 % (38.7-80.0); PLATELET COUNT 324 x10e3/uL (140-360); RED CELL DISTRIBUTION WIDTH 17.1 % (11.7-14.4)
[2020-04-30 06:22] LABS: ANION GAP 14.8 mmol/L (8-16); BLOOD UREA NITROGEN 13 mg/dL (7-26); BUN/CREATININE RATIO 16 (6-25); CALCIUM 8.5 mg/dL (8.4-10.2); CARBON DIOXIDE 26 mmol/L (22-29); CHLORIDE 102 mmol/L (98-107); EST GLOMERULAR FILTRATION RATE > 60 ML/MIN (60-); GLUCOSE 86 mg/dL (74-118); POTASSIUM 3.8 mmol/L (3.5-5.1); SODIUM 139 mmol/L (136-145)
[2020-04-30] MEDS: METOPROLOL TARTRATE 50 MG TAB PO SCH ×3 (06:23→12:34)
[2020-04-30 07:49] VITALS: BP 99/66
[2020-04-30] MEDS: FUROSEMIDE INJ 10 MG/ML 4 ML VIAL IV SCH (08:14)
[2020-04-30] MEDS: AMIODARONE HCL 200 MG TAB PO SCH (08:14)
[2020-04-30] MEDS: FAMOTIDINE 20 MG TAB PO SCH (08:14)
[2020-04-30] MEDS: APIXAB 2.5 MG TABLET PO SCH (08:14)
[2020-04-30] MEDS: POTASSIUM CHLORIDE 20 MEQ TAB CR PO SCH (08:20)
[2020-04-30 08:24] VITALS: BP 99/66
[2020-04-30] MEDS: FLECAINIDE ACETATE 100 MG TAB PO SCH (10:40)
[2020-04-30] MEDS: SODIUM FERRIC GLUCONATE COMPLX 125 MG in SODIUM CHLORIDE 0.9% 100 ML 100 ML IV SCH (10:43)
[2020-04-30 11:19] VITALS: BP 107/75
[2020-04-30] MEDS ORDERED: KLOR-CON M2020 MEQ PO (12:07)
[2020-04-30] MEDS ORDERED: AMIODARONE HCL200 MG PO (12:07)
[2020-04-30] MEDS ORDERED: LASIX40 MG PO (12:07)
[2020-04-30] MEDS ORDERED: FERROUS SULFAT325 MG PO (12:38)
[2020-04-30] MEDS ORDERED: VITAMIN C500 M2 PO (12:38)
[2020-04-30] MEDS ORDERED: ONDANSETRON HCL 4 MG ORAL DISINTEGRATING TAB PO PRN (12:45)
[2020-04-30] MEDS ORDERED: MIRALAX17 GM PO (13:44)
[2020-04-30] MEDS ORDERED: LACTULOSE20 GM/30 M PO (13:44)
[2020-04-30] MEDS ORDERED: COLACE100 MG PO (13:44)
[2020-04-30] MEDS ORDERED: POLYETHYLENE GLYCOL 3350 17 GM PACK PO ONE (13:45)
[2020-04-30] MEDS ORDERED: DOCUSATE SODIUM 100 MG CAP PO ONE (13:45)
[2020-04-30] MEDS ORDERED: POLYETHYLENE GLYCOL 3350 17 GM PACK PO SCH (17:00)
[2020-04-30] MEDS ORDERED: DOCUSATE SODIUM LIQD 100 MG/10 ML UDC NG SCH (17:00)
[2020-04-30] MEDS ORDERED: BUDESONIDE/FORMOTEROL FUMARATE 80/4.5MCG 6.9 GM INH AEROSOL IH SCH (19:00)
== END 2020-04-30 13:41 | disposition home or self-care (01) | DRG 308 ==
LOC: ER 04:35 → ERHOLD 05:30 → ICU 08:11 → MED/SURG2 04-29 17:24
PROVIDERS: ADMIT Internal Medicine; ATTEND Internal Medicine
DX: I48.0 Paroxysmal atrial fibrillation (principal); I50.43 Acute on chronic combined systolic (congestive) and diastolic (congestive) heart failure; Z68.42 Body mass index [BMI] 45.0-49.9, adult; I42.8 Other cardiomyopathies; Z79.01 Long term (current) use of anticoagulants; R77.8 Other specified abnormalities of plasma proteins; D50.9 Iron deficiency anemia, unspecified; E66.01 Morbid (severe) obesity due to excess calories; I11.0 Hypertensive heart disease with heart failure; Z20.828 Contact with and (suspected) exposure to other viral communicable diseases
CPT/HCPCS: 36415; 71045; 80048; 80053; 80061; 82550; 82553; 83540; 83880; 84439; 84443; 84466; 84484; 85025; 93005; 93306; 99284; J1940; J2405; J2916; J7030; J7050; U0002